=== PATIENT | female | born 1945 | race Caucasian/White ===

== ENCOUNTER 2018-10-05 12:05 | Inpatient (IN) | payer OTHER ==
[2018-10-05 12:58] VITALS: BMI 32.1
[2018-10-05] MEDS: NACHLORIDE 0.45% 1,000 ML IV SCH (13:55)
[2018-10-05] MEDS: MECLIZINE HCL 12.5 MG TAB PO SCH ×2 (13:55→21:30)
[2018-10-05] MEDS ORDERED: ONDANSETRON 4 MG (ODT) TAB PO PRN (14:00)
[2018-10-05] MEDS ORDERED: ONDANSETRON 4 MG/2 ML VIAL IV PRN (14:00)
[2018-10-05] MEDS ORDERED: DIPHENHYDRAMINE 25 MG TAB/CAP PO PRN (14:00)
[2018-10-05] MEDS ORDERED: POLYETHYL GLY 3350 17 GM/DOSE PO PRN (14:00)
[2018-10-05] MEDS ORDERED: LOPERAMIDE HCL 2 MG CAPSULE PO PRN (14:00)
[2018-10-05 15:18] LABS: Magnesium 2.1 mg/dL (1.8-2.4); Phosphorus 3.1 mg/dL (2.5-4.9); Thyroid Stimulating Hormone 0.892 uIU/mL (0.360-3.740)
[2018-10-05 15:34] LABS: Urine Appearance CLOUDY; Urine Bilirubin NEGATIVE (NEG); Urine Blood 2+ (NEG); Urine Color YELLOW; Urine Glucose NEGATIVE (NEG); Urine Protein 1+ (NEG); Urine Urobilinogen 0.2 mg/dL (0.2-1.0)
[2018-10-05 15:46] LABS: Absolute Lymphocytes (CBC) 1.1 K/uL (0.7-4.9); Basophils % 0.4 % (0-1.3); Eosinophils % 0.1 % (0-4.4); Hematocrit 34.7 % (36.0-45.0); Lymphocytes % 9.8 % (15.3-44.8); MPV 9.3 fL (7.6-11.3); Monocytes % 8.6 % (3.3-12.3); RBC Red Blood Cell Count 3.78 M/uL (3.86-4.86)
[2018-10-05 15:47] LABS: Protime INR 1.23
[2018-10-05 16:04] LABS: Urine Microscopic Reflex ORDER UMIC
[2018-10-05 16:05] LABS: Urine Bacteria 20-50 /HPF (<20); Urine Culture Reflex Order REFLEXED; Urine Mucus 2+ /HPF (NONE SEEN)
[2018-10-05] MEDS ORDERED: D50W 25 GM/50 ML SYRINGE IV PRN (16:20)
[2018-10-05] MEDS ORDERED: GLUCAGON 1 MG/VIAL IM PRN (16:20)
--- NOTE | 2018-10-05 16:27 | RAD REPORT ---
EXAM DESCRIPTION: [place] Single View10/05/2018 3:07 pm CLINICAL HISTORY: Abdominal pain COMPARISON: 2017 FINDINGS: The lungs appear clear of acute infiltrate. The heart is normal size IMPRESSION: No acute abnormalities displayed
[2018-10-05 16:28] LABS: Albumin 3.1 g/dL (3.4-5.0); Bilirubin Direct 0.5 mg/dL (0-0.2); Bilirubin Total 1.4 mg/dL (0.2-1.0); Protein, Total 6.6 g/dL (6.4-8.2)
[2018-10-05] MEDS: INSULIN -REGULAR HUMAN 50 UNIT/0.5 ML ML SQ SCH ×2 (16:30→21:00)
--- NOTE | 2018-10-05 16:31 | RAD REPORT ---
EXAM DESCRIPTION: CT - Abdomen Pelvis W Contrast - 10/05/2018 3:44 pm CLINICAL HISTORY: Abdominal pain COMPARISON: 2017 TECHNIQUE: Computed axial tomography of the abdomen pelvis was obtained. 100 cc Isovue-300 was admin istered intravenously. Oral contrast was not requested which limits evaluation of bowel. All CT scans are performed using dose optimization technique as appropriate and may include automated exposure control or mA/KV adjustment according to patient size. FINDINGS: Fatty infiltration liver. Gallbladder is been removed Spleen, pancreas and adrenals appear unremarkable. Moderate low-density areas are present within the right kidney reaching the periphery having the appe arance of pyelonephritis. Small renal cysts. Right perirenal stranding is present. There is no evidence of diverticulitis. IMPRESSION: Moderate right pyelonephritis
[2018-10-05] MEDS: ACETAMINOPHEN 325 MG TABLET PO PRN (17:36)
[2018-10-05] MEDS: CEFTRIAXONE/SWI 1gm 1 GM/10 ML SYR IVP SCH (17:38)
[2018-10-05 19:23] LABS: Absolute Lymphocytes (CBC) 0.7 K/uL (0.7-4.9); Absolute Monocytes 0.5 K/uL (0.1-1.3); Absolute Neutrophil 7.4 K/uL (1.8-8.0); Basophils % 0.2 % (0-1.3); Eosinophils % 0.1 % (0-4.4); Hematocrit 33.7 % (36.0-45.0); Lymphocytes % 7.9 % (15.3-44.8); MPV 9.4 fL (7.6-11.3); Monocytes % 5.6 % (3.3-12.3); RBC Red Blood Cell Count 4.02 M/uL (3.86-4.86)
[2018-10-05 19:25] LABS: Bilirubin Total 0.8 mg/dL (0.2-1.0); Potassium 3.3 mmol/L (3.5-5.1); Protein, Total 6.5 g/dL (6.4-8.2)
[2018-10-05] MEDS ORDERED: CEFTRIAXONE/SWI 1gm 1 GM/10 ML SYR IVP SCH (21:00)
[2018-10-05 21:28] LABS: Blood Morphology Comment NOT SEEN (NOT SEEN); Platelet Estimate ADEQ; Urine White Blood Cell Casts OK
--- NOTE | 2018-10-05 22:54 | EKG ---
Test Date: 2018-10-05 Test Time: 16:27:25 Freight Agent: MIGUELANGEL MEASUREMENT RESULTS: Intervals: Rate: 91 MI: 282 QRSD: 84 QT: 358 QTc: 440 [place]: P: 58 MI: 282 QRS: -6 T: 97 INTERPRETIVE STATEMENTS: Sinus rhythm with 1st degree AV block Nonspecific ST and T wave abnormality Abnormal ECG Compared to ECG 10/05/2018 14:24:42 No significant changes Electronically Signed On 10-05-18 22:53:58 CAR REFINISHER by Graham Moy
--- NOTE | 2018-10-05 22:55 | EKG ---
Test Date: 2018-10-05 Test Time: 14:24:42 [place] Machine Operator: JAGUAR MEASUREMENT RESULTS: Intervals: Rate: 71 UT: 284 QRSD: 86 QT: 404 QTc: 439 [place]: P: 32 UT: 284 QRS: -8 T: 102 INTERPRETIVE STATEMENTS: Sinus rhythm with 1st degree AV block Nonspecific ST and T wave abnormality Abnormal ECG Compared to ECG 08/30/2009 11:28:36 ST (T wave) deviation now present Electronically Signed On 10-05-18 22:55:00 SOFTBALL CORE MOLDER by Graham Moy
[2018-10-06] MEDS: NACHLORIDE 0.45% 1,000 ML IV SCH ×2 (04:13→17:55)
[2018-10-06 05:23] LABS: Absolute Lymphocytes (CBC) 1.4 K/uL (0.7-4.9); Absolute Monocytes 1.1 K/uL (0.1-1.3); Absolute Neutrophil 7.3 K/uL (1.8-8.0); Basophils % 0.4 % (0-1.3); Eosinophils % 0.2 % (0-4.4); Hematocrit 33.9 % (36.0-45.0); MPV 9.4 fL (7.6-11.3); Monocytes % 11.4 % (3.3-12.3); RBC Red Blood Cell Count 4.05 M/uL (3.86-4.86)
[2018-10-06 05:38] LABS: Magnesium 1.7 mg/dL (1.8-2.4); Potassium 3.6 mmol/L (3.5-5.1)
[2018-10-06] MEDS: PANTOPRAZOLE 40MG TABLET PO SCH (05:49)
[2018-10-06] MEDS: INSULIN -REGULAR HUMAN 50 UNIT/0.5 ML ML SQ SCH ×4 (07:30→21:00)
[2018-10-06] MEDS ORDERED: POTASSIUM CL SA 10 MEQ TAB PO ONE (07:54)
[2018-10-06] MEDS ORDERED: MAGNESIUM SULFATE 1 gm IVPB 1 GM/100 ML BAG IV ONE (07:55)
[2018-10-06] MEDS: GLIMEPIRIDE 2 MG TABLET PO SCH (09:00)
[2018-10-06] MEDS: LOSARTAN POTASSIUM 50 MG TABLET PO SCH (09:03)
[2018-10-06] MEDS: AMLODIPINE 5 MG TAB PO SCH ×2 (09:03→21:09)
[2018-10-06] MEDS: CEFTRIAXONE/SWI 1gm 1 GM/10 ML SYR IVP SCH ×2 (09:04→20:12)
[2018-10-06] MEDS: CARVEDILOL 25 MG TAB PO SCH ×2 (09:04→21:08)
[2018-10-06] MEDS: ENOXAPARIN 40 MG/0.4 ML SQ SCH (09:04)
[2018-10-06] MEDS: ACETAMINOPHEN 325 MG TABLET PO PRN ×2 (09:05→14:00)
[2018-10-06] MEDS: MECLIZINE HCL 12.5 MG TAB PO SCH ×3 (09:08→20:13)
[2018-10-06 15:36] LABS: UR MICROALBUMIN 21.1 mg/dL (< 1.9)
--- NOTE | 2018-10-06 17:36 | P.PN ---
Subjective Date of Service: 10/06/18 Chief Complaint: NOT MUCH DIZZY, FEVER STILL THERE. FEELS LOT BETTER. SHE IS FEELING LOT BETTER THAN YESTERDAY. Review of Systems 10-point ROS is otherwise unremarkable General: Weakness, Malaise Physical Examination - Vital Signs Temperature: 101.4 F Blood Pressure: 126/56 Pulse: 74 Respirations: 18 Pulse Ox (%): 93 - Physical Exam General: Mild distress HEENT: Atraumatic, PERRLA, EOMI Neck: Supple, JVD not distended Respiratory: Clear to auscultation bilaterally, Normal air movement Cardiovascular: Regular rate/rhythm, Normal S1 S2 Gastrointestinal: Normal bowel sounds, No tenderness Musculoskeletal: No tenderness Integumentary: No rashes Neurological: Normal speech, Normal tone, Normal affect Lymphatics: No axilla or inguinal lymphadenopathy - Studies Laboratory Data (last 24 hrs) 10/06/18 04:48: Sodium 139, Potassium 3.6, BUN 17, Creatinine 0.91, Glucose 76, Magnesium 1.7 L 10/06/18 04:48: WBC 9.9 D, Hgb 11.1 L, Hct 33.9 L, Plt Count 154 10/05/18 18:50: Sodium 137, Potassium 3.3 L, BUN 20 H, Creatinine 0.96, Glucose 180 H, Total Bilirubin 0.8, AST 16, ALT 19, Alkaline Phosphatase 75 10/05/18 18:50: WBC 8.6 D, Hgb 11.1 L, Hct 33.7 L, Plt Count 149 L Microbiology Data (last 24 hrs): 10/06/18 04:20 Sputum Gram Stain - Final Medications List Reviewed: Yes Assessment And Plan - Current Problems (Diagnosis) (1) Acute pyelonephritis Current Visit: Yes Status: Acute Plan: ROCEPHIN IV BID. CULTURE PENDING STILL HAS FEVER WILL NEED AT LEAST ONE MORE DAY
[2018-10-06] MEDS ORDERED: IBUPROFEN 200 MG TAB PO PRN (17:56)
[2018-10-06] MEDS: METFORMIN ER 500 MG TAB PO SCH (20:13)
[2018-10-06] MEDS: ATORVASTATIN 10 MG TAB PO SCH (20:13)
[2018-10-06] MEDS: DOXEPIN HCL 10 MG CAP PO SCH (21:08)
[2018-10-07 04:08] LABS: Absolute Lymphocytes (CBC) 1.2 K/uL (0.7-4.9); Absolute Neutrophil 5.4 K/uL (1.8-8.0); Basophils % 0.4 % (0-1.3); Eosinophils % 1.1 % (0-4.4); Hematocrit 31.3 % (36.0-45.0); Lymphocytes % 15.1 % (15.3-44.8); MPV 9.6 fL (7.6-11.3); Monocytes % 12.7 % (3.3-12.3); RBC Red Blood Cell Count 3.77 M/uL (3.86-4.86)
[2018-10-07 04:32] LABS: Magnesium 2.5 mg/dL (1.8-2.4); Potassium 3.9 mmol/L (3.5-5.1)
[2018-10-07] MEDS ORDERED: POTASSIUM CL SA 10 MEQ TAB PO ONE (05:10)
[2018-10-07] MEDS: NACHLORIDE 0.45% 1,000 ML IV SCH (06:07)
[2018-10-07] MEDS: PANTOPRAZOLE 40MG TABLET PO SCH (06:07)
[2018-10-07] MEDS: INSULIN -REGULAR HUMAN 50 UNIT/0.5 ML ML SQ SCH ×4 (07:30→21:00)
[2018-10-07] MEDS: CEFTRIAXONE/SWI 1gm 1 GM/10 ML SYR IVP SCH ×2 (08:48→21:40)
[2018-10-07] MEDS: ENOXAPARIN 40 MG/0.4 ML SQ SCH (08:49)
[2018-10-07] MEDS: AMLODIPINE 5 MG TAB PO SCH ×2 (08:49→21:43)
[2018-10-07] MEDS: CARVEDILOL 25 MG TAB PO SCH ×2 (08:50→21:40)
[2018-10-07] MEDS: GLIMEPIRIDE 2 MG TABLET PO SCH (08:52)
[2018-10-07] MEDS: LOSARTAN POTASSIUM 50 MG TABLET PO SCH (08:53)
[2018-10-07] MEDS: MECLIZINE HCL 12.5 MG TAB PO SCH ×3 (08:53→21:42)
[2018-10-07] MEDS: ACETAMINOPHEN 325 MG TABLET PO PRN (08:56)
--- NOTE | 2018-10-07 21:10 | P.PN ---
Subjective Date of Service: 10/07/18 Chief Complaint: LOT BETTER. Subjective: Improving SHE IS FEELING LOT BETTER THAN YESTERDAY. MARIAM IS ALOT BETTER. SHE STILL HAD FEVER THIS AM. DC IN AM. Physical Examination - Vital Signs Temperature: 99.4 F Blood Pressure: 101/48 Pulse: 70 Respirations: 18 Pulse Ox (%): 91 - Studies Laboratory Data (last 24 hrs) 10/07/18 03:24: Sodium 140, Potassium 3.9, BUN 20 H, Creatinine 0.90, Glucose 127 H, Magnesium 2.5 H D 10/07/18 03:24: WBC 7.7 D, Hgb 10.2 L, Hct 31.3 L, Plt Count 163 Microbiology Data (last 24 hrs): 10/06/18 04:20 Sputum Gram Stain - Final 10/05/18 15:24 Clean Catch Urine [place] Count - Final >100,000 CFU/ML. 10/05/18 15:24 Clean Catch Urine - Final Escherichia Coli Medications List Reviewed: Yes Assessment And Plan - Current Problems (Diagnosis) (1) Acute pyelonephritis Current Visit: Yes Status: Acute Plan: ROCEPHIN IV BID. CULTURE PENDING STILL HAS FEVER WILL NEED AT LEAST ONE MORE DAY E COLI FROM URINE DC WHEN AFEBRILE IN AM.
[2018-10-07] MEDS: ATORVASTATIN 10 MG TAB PO SCH (21:42)
[2018-10-07] MEDS: METFORMIN ER 500 MG TAB PO SCH (21:43)
[2018-10-07] MEDS: DOXEPIN HCL 10 MG CAP PO SCH (21:44)
[2018-10-08] MEDS: NACHLORIDE 0.45% 1,000 ML IV SCH ×3 (00:21→21:08)
[2018-10-08] MEDS: ACETAMINOPHEN 325 MG TABLET PO PRN ×2 (00:37→16:44)
[2018-10-08 06:24] LABS: Absolute Lymphocytes (CBC) 1.3 K/uL (0.7-4.9); Absolute Monocytes 0.7 K/uL (0.1-1.3); Absolute Neutrophil 2.6 K/uL (1.8-8.0); Basophils % 0.6 % (0-1.3); Eosinophils % 2.8 % (0-4.4); Hematocrit 30.6 % (36.0-45.0); Lymphocytes % 26.5 % (15.3-44.8); MPV 8.9 fL (7.6-11.3); Monocytes % 14.7 % (3.3-12.3); RBC Red Blood Cell Count 3.67 M/uL (3.86-4.86)
[2018-10-08] MEDS: PANTOPRAZOLE 40MG TABLET PO SCH (06:30)
[2018-10-08 06:39] LABS: Potassium 3.9 mmol/L (3.5-5.1)
[2018-10-08] MEDS: INSULIN -REGULAR HUMAN 50 UNIT/0.5 ML ML SQ SCH ×4 (07:30→21:00)
[2018-10-08] MEDS: ENOXAPARIN 40 MG/0.4 ML SQ SCH (08:34)
[2018-10-08] MEDS: CARVEDILOL 25 MG TAB PO SCH ×2 (08:36→21:10)
[2018-10-08] MEDS: GLIMEPIRIDE 2 MG TABLET PO SCH (08:36)
[2018-10-08] MEDS: MECLIZINE HCL 12.5 MG TAB PO SCH ×3 (08:37→21:10)
[2018-10-08] MEDS: AMLODIPINE 5 MG TAB PO SCH ×2 (08:37→21:09)
[2018-10-08] MEDS: LOSARTAN POTASSIUM 50 MG TABLET PO SCH (08:37)
[2018-10-08] MEDS: CEFTRIAXONE/SWI 1gm 1 GM/10 ML SYR IVP SCH ×2 (08:38→21:09)
[2018-10-08] MEDS ORDERED: POTASSIUM 25 MEQ EFFERV TAB PO ONE (09:00)
--- NOTE | 2018-10-08 13:58 | P.PN ---
Subjective Date of Service: 10/08/18 Chief Complaint: LOT BETTER. Subjective: Improving SHE IS FEELING LOT BETTER THAN YESTERDAY. MARIAM IS ALOT BETTER. SHE STILL HAD FEVER THIS AM. DC IN AM. SHE IS A LOT BETTER BUT STILL HAS TEMP ELEVATION IN AM. Review of Systems 10-point ROS is otherwise unremarkable Physical Examination - Vital Signs Temperature: 100.9 F Blood Pressure: 124/59 Pulse: 73 Respirations: 18 Pulse Ox (%): 93 - Physical Exam General: Alert, Mild distress HEENT: Atraumatic, PERRLA, EOMI Neck: Supple, JVD not distended Respiratory: Clear to auscultation bilaterally, Normal air movement Cardiovascular: Regular rate/rhythm, Normal S1 S2 Gastrointestinal: Tenderness (R SIDE FLANK PAIN, TENDER. ) Musculoskeletal: No tenderness Integumentary: No rashes Neurological: Normal speech, Normal tone, Normal affect Lymphatics: No axilla or inguinal lymphadenopathy - Studies Laboratory Data (last 24 hrs) 10/08/18 06:01: Sodium 143, Potassium 3.9, BUN 16, Creatinine 0.89, Glucose 91, Magnesium 2.0 D 10/08/18 06:01: WBC 4.8 D, Hgb 10.2 L, Hct 30.6 L, Plt Count 187 Microbiology Data (last 24 hrs): 10/06/18 04:20 Sputum Gram Stain - Final 10/06/18 04:20 Sputum Culture & Sensitivity - Final Medications List Reviewed: Yes Assessment And Plan - Current Problems (Diagnosis) (1) Acute pyelonephritis Current Visit: Yes Status: Acute Plan: ROCEPHIN IV BID. CULTURE PENDING STILL HAS FEVER WILL NEED AT LEAST ONE MORE DAY E COLI FROM URINE DC WHEN AFEBRILE IN AM. STILL FEBRILE. WILL NEED TO BE AFEBRILE FOR A DAY RESUME IV ABX.
[2018-10-08 15:13] LABS: Vitamin D 1,25-Dihydroxy Total 27 pg/mL (18-72); Vitamin D,1,25-OH2, D2 <8 pg/mL
[2018-10-08] MEDS: ATORVASTATIN 10 MG TAB PO SCH (21:10)
[2018-10-08] MEDS: METFORMIN ER 500 MG TAB PO SCH (21:10)
[2018-10-08] MEDS: DOXEPIN HCL 10 MG CAP PO SCH (21:11)
[2018-10-08 21:51] LABS: HBsAG Nonreactive (Nonreactive); Hepatitis A IgM Antibody Nonreactive
[2018-10-09] MEDS: PANTOPRAZOLE 40MG TABLET PO SCH (05:39)
[2018-10-09] MEDS: NACHLORIDE 0.45% 1,000 ML IV SCH ×3 (05:40→20:49)
[2018-10-09 06:27] LABS: Absolute Lymphocytes (CBC) 1.6 K/uL (0.7-4.9); Absolute Monocytes 0.6 K/uL (0.1-1.3); Absolute Neutrophil 3.4 K/uL (1.8-8.0); Basophils % 0.8 % (0-1.3); Eosinophils % 2.5 % (0-4.4); Hematocrit 34.5 % (36.0-45.0); Lymphocytes % 27.4 % (15.3-44.8); MPV 8.8 fL (7.6-11.3); Monocytes % 11.1 % (3.3-12.3); RBC Red Blood Cell Count 4.16 M/uL (3.86-4.86)
[2018-10-09 06:33] LABS: Potassium 4.3 mmol/L (3.5-5.1)
[2018-10-09] MEDS: INSULIN -REGULAR HUMAN 50 UNIT/0.5 ML ML SQ SCH ×4 (07:30→20:48)
--- NOTE | 2018-10-09 08:08 | P.PN ---
Subjective Date of Service: 10/09/18 Chief Complaint: LOT BETTER. Subjective: Improving SHE IS FEELING LOT BETTER THAN YESTERDAY. MARIAM IS ALOT BETTER. SHE STILL HAD FEVER THIS AM. DC IN AM. SHE IS A LOT BETTER BUT STILL HAS TEMP ELEVATION IN AM. FEVER IS STILL THERE BUT LOW GRADE. Review of Systems 10-point ROS is otherwise unremarkable Physical Examination - Vital Signs Temperature: 99.6 F Blood Pressure: 138/65 Pulse: 75 Respirations: 18 Pulse Ox (%): 90 - Physical Exam General: Alert, Mild distress HEENT: Atraumatic, PERRLA, EOMI Neck: Supple, JVD not distended Respiratory: Clear to auscultation bilaterally, Normal air movement Cardiovascular: Regular rate/rhythm, Normal S1 S2 Gastrointestinal: Tenderness (MILD R ABDOMEN TENDER, LOT BETTER THAN BEFORE) Musculoskeletal: No tenderness Integumentary: No rashes Neurological: Normal speech, Normal tone, Normal affect Lymphatics: No axilla or inguinal lymphadenopathy - Studies Laboratory Data (last 24 hrs) 10/09/18 05:41: Sodium 143, Potassium 4.3, BUN 11, Creatinine 0.66, Glucose 81, Magnesium 2.0 10/09/18 05:41: WBC 5.8 D, Hgb 11.3 L, Hct 34.5 L, Plt Count 241 D Microbiology Data (last 24 hrs): 10/06/18 04:20 Sputum Gram Stain - Final 10/06/18 04:20 Sputum Culture & Sensitivity - Final Medications List Reviewed: Yes Assessment And Plan - Current Problems (Diagnosis) (1) Acute pyelonephritis Current Visit: Yes Status: Acute Plan: ROCEPHIN IV BID. CULTURE PENDING STILL HAS FEVER WILL NEED AT LEAST ONE MORE DAY E COLI FROM URINE DC WHEN AFEBRILE IN AM. STILL FEBRILE. WILL NEED TO BE AFEBRILE FOR A DAY RESUME IV ABX. FEVER HAS IMPROVED BUT STILL SOME HIGH IN AM DC IN AM.
[2018-10-09] MEDS: ENOXAPARIN 40 MG/0.4 ML SQ SCH (08:33)
[2018-10-09] MEDS: GLIMEPIRIDE 2 MG TABLET PO SCH (08:34)
[2018-10-09] MEDS: AMLODIPINE 5 MG TAB PO SCH ×2 (08:34→20:51)
[2018-10-09] MEDS: CARVEDILOL 25 MG TAB PO SCH ×2 (08:35→20:50)
[2018-10-09] MEDS: LOSARTAN POTASSIUM 50 MG TABLET PO SCH (08:36)
[2018-10-09] MEDS: MECLIZINE HCL 12.5 MG TAB PO SCH ×3 (08:36→20:50)
[2018-10-09] MEDS: CEFTRIAXONE/SWI 1gm 1 GM/10 ML SYR IVP SCH ×2 (08:36→20:49)
[2018-10-09] MEDS: METFORMIN ER 500 MG TAB PO SCH (20:50)
[2018-10-09] MEDS: ATORVASTATIN 10 MG TAB PO SCH (20:50)
[2018-10-09] MEDS: DOXEPIN HCL 10 MG CAP PO SCH (20:51)
[2018-10-10] MEDS: ACETAMINOPHEN 325 MG TABLET PO PRN (00:10)
[2018-10-10] MEDS: PANTOPRAZOLE 40MG TABLET PO SCH (05:25)
[2018-10-10] MEDS: NACHLORIDE 0.45% 1,000 ML IV SCH (05:25)
[2018-10-10 06:17] LABS: Absolute Monocytes 0.7 K/uL (0.1-1.3); Absolute Neutrophil 3.2 K/uL (1.8-8.0); Basophils % 1.2 % (0-1.3); Eosinophils % 2.5 % (0-4.4); Hematocrit 33.6 % (36.0-45.0); Lymphocytes % 32.2 % (15.3-44.8); MPV 9.1 fL (7.6-11.3); Monocytes % 10.9 % (3.3-12.3); RBC Red Blood Cell Count 4.07 M/uL (3.86-4.86)
[2018-10-10 06:30] LABS: Magnesium 2.1 mg/dL (1.8-2.4); Potassium 3.8 mmol/L (3.5-5.1)
[2018-10-10] MEDS ORDERED: POTASSIUM CL SA 10 MEQ TAB PO ONE ×2 (07:27→09:00)
[2018-10-10] MEDS: INSULIN -REGULAR HUMAN 50 UNIT/0.5 ML ML SQ SCH ×2 (07:30→11:30)
[2018-10-10] MEDS: CEFTRIAXONE/SWI 1gm 1 GM/10 ML SYR IVP SCH (08:43)
[2018-10-10] MEDS: ENOXAPARIN 40 MG/0.4 ML SQ SCH (08:43)
[2018-10-10] MEDS: GLIMEPIRIDE 2 MG TABLET PO SCH (08:44)
[2018-10-10] MEDS: CARVEDILOL 25 MG TAB PO SCH (08:45)
[2018-10-10] MEDS: LOSARTAN POTASSIUM 50 MG TABLET PO SCH (08:45)
[2018-10-10] MEDS: MECLIZINE HCL 12.5 MG TAB PO SCH (08:45)
[2018-10-10] MEDS: AMLODIPINE 5 MG TAB PO SCH (08:46)
[2018-10-10 09:18] VITALS: O2SAT 94
--- NOTE | 2018-10-10 10:19 | P.DS ---
Admission Date: 10/05/18 Discharge Date: 10/10/18 Disposition: ROUTINE DISCHARGE Discharge Condition: FAIR Reason for Admission: LOT BETTER. - Problems (1) Acute pyelonephritis Current Visit: Yes Status: Acute Hospital Course: Khloe comes with high fever and I suspect r sided pyelonephritis in the office. This was confirmed by CT scan and UA. She took a few days to get afebrile on iv Rocephin. She is now stable to go home on oral ceftin. She also needed Meclizine for severe vertigo that now has resolved. Vital Signs/Physical Exam: Temp Pulse Resp BP Pulse Ox 97.1 F 75 18 141/63 H 93 10/10/18 08:00 10/10/18 08:46 10/10/18 08:00 10/10/18 08:46 10/10/18 08:00 Laboratory Data at Discharge: WBC 6.1 K/uL (4.3-10.9) 10/10/18 05:21 Hgb 11.3 g/dL (12.0-15.0) L 10/10/18 05:21 Hct 33.6 % (36.0-45.0) L 10/10/18 05:21 Plt Count 240 K/uL (152-406) 10/10/18 05:21 PT 14.6 SECONDS (9.5-12.5) H 10/05/18 14:19 INR 1.23 10/05/18 14:19 APTT 28.5 SECONDS (24.3-36.9) 10/05/18 14:19 Sodium 143 mmol/L (136-145) 10/10/18 05:21 Potassium 3.8 mmol/L (3.5-5.1) 10/10/18 05:21 BUN 11 mg/dL (7-18) 10/10/18 05:21 Creatinine 0.75 mg/dL (0.55-1.3) 10/10/18 05:21 Glucose 91 mg/dL (74-106) 10/10/18 05:21 Phosphorus 3.1 mg/dL (2.5-4.9) 10/05/18 14:19 Magnesium 2.1 mg/dL (1.8-2.4) 10/10/18 05:21 Total Bilirubin 1.4 mg/dL (0.2-1.0) H 10/05/18 Unknown AST 10 U/L (15-37) L 10/05/18 Unknown ALT 19 U/L (12-78) 10/05/18 Unknown Alkaline Phosphatase 76 U/L (45-117) 10/05/18 Unknown Home Medications: Carvedilol [Coreg*] 12.5 mg PO BID 05/29/15 Losartan Potassium [Cozaar] 100 mg PO DAILY 05/29/15 Pravastatin [Pravachol] 20 mg PO BEDTIME 05/29/15 Amlodipine [Norvasc*] 5 mg PO BID 10/05/18 Doxepin HCl [Sinequan*] 10 mg PO BEDTIME 10/05/18 Glimepiride 4 mg PO DAILY 10/05/18 Metformin ER [Glucophage ER*] 500 mg PO BEDTIME 10/05/18 Omeprazole 20 mg PO DAILY 10/05/18 Torsemide 10 mg PO DAILY 10/05/18 Cefuroxime [Ceftin] 250 mg PO BID #20 tab 10/10/18 New Medications: Cefuroxime [Ceftin] 250 mg PO BID #20 tab
[2018-10-10 12:07] VITALS: BP 130/62; TEMP 97.8
== END 2018-10-10 13:37 | disposition home or self-care (01) | DRG 690 ==
LOC: 4TH 12:24 → OBSVTOIN 14:06 → INTOOBSV 14:06 → OBSVTOIN 10-06 14:05
PROVIDERS: ADMIT Internal Medicine; ATTEND Internal Medicine
DX: N10 Acute pyelonephritis (principal); I10 Essential (primary) hypertension; Z86.010 Personal history of colon polyps; R68.2 Dry mouth, unspecified; E11.9 Type 2 diabetes mellitus without complications; E78.5 Hyperlipidemia, unspecified; I25.10 Atherosclerotic heart disease of native coronary artery without angina pectoris; R50.9 Fever, unspecified; B96.20 Unspecified Escherichia coli [E. coli] as the cause of diseases classified elsewhere
CPT/HCPCS: 36415; 71045; 74177; 80048; 80053; 80074; 80076; 81003; 81015; 82043; 82570; 82607; 82652; 82962; 83036; 83605; 83735; 84100; 84443; 85025; 85610; 85730; 87040; 87070; 87077; 87086; 87088; 87186; 87205; 93005; J0696; J1650; J3475; Q9967

== ENCOUNTER 2019-03-03 09:46 | Day surgery (SDC) | payer OTHER ==
[2019-03-03] MEDS ORDERED: Zoledronic Acid/Mannitol/Water 5 MG/100 ML INFUS.BOT IV NR (10:00)
[2019-03-03 16:04] VITALS: BP 119/56; TEMP 98.3; O2SAT 98
[2019-03-03 16:09] VITALS: BMI 31.8
== END 2019-03-03 11:00 | disposition home or self-care (01) ==
LOC: DS 09:46
PROVIDERS: ATTEND Clinical Nurse Specialist Women's Health
DX: M89.9 Disorder of bone, unspecified (principal)
CPT/HCPCS: 96365; J3489

== ENCOUNTER 2020-06-02 20:05 | Emergency (ER) | payer OTHER ==
[2020-06-02 20:41] LABS: Absolute Lymphocytes (CBC) 1.5 K/uL (0.7-4.9); Basophils % 0.5 % (0-1.3); Hematocrit 43.2 % (36.0-45.0); Lymphocytes % 17.4 % (15.3-44.8); MPV 9.3 fL (7.6-11.3); RBC Red Blood Cell Count 5.02 M/uL (3.86-4.86)
[2020-06-02 20:49] LABS: Urine Culture Reflex Order REFLEXED
[2020-06-02 20:50] LABS: Urine Bacteria <20 /HPF (<20); Urine RBC <5 /HPF (NONE SEEN); Urine Urothelial Cells <5 /HPF (NONE SEEN)
[2020-06-02] MEDS ORDERED: NA CHLORIDE 0.9% 1,000 ML ONE (20:52)
[2020-06-02] MEDS ORDERED: ONDANSETRON 4 MG/2 ML VIAL ONE (20:52)
[2020-06-02 21:02] LABS: Albumin 3.7 g/dL (3.4-5.0); Bilirubin Direct 0.2 mg/dL (0-0.2); Bilirubin Total 0.7 mg/dL (0.2-1.0); Protein, Total 7.7 g/dL (6.4-8.2)
--- NOTE | 2020-06-02 21:49 | ER ---
Nurse's Notes [facility] Name: Khloe Diaz Age: 74 yrs Sex: Female : 1945 Arrival Date: 06/02/2020 Time: 20:08 Bed 7 Private MD: Marco Peraza V Diagnosis: Urinary tract infection, site not specified Presentation: 06/02 20:26 Chief complaint: Patient states: Diagnosed with UTI 3 days ago, given Bactrim lp1 prescription, told to come to ER if no improvement; States 2 years ago, similar symptoms with kidney infection; denies any pain. Coronavirus screen: Client denies travel out of the [place] in the last 14 days. At this time, the client does not indicate any symptoms associated with coronavirus-19. Ebola Screen: No symptoms or risks identified at this time. Initial Sepsis Screen: Does the patient meet any 2 criteria? No. Patient's initial sepsis screen is negative. Does the patient have a suspected source of infection? No. Patient's initial sepsis screen is negative. Risk Assessment: Do you want to hurt yourself or someone else? Patient reports no desire to harm self or others. Onset of symptoms was June 02, 2020. 20:26 Method Of Arrival: Wheelchair lp1 20:26 Acuity: CATARINO 3 lp1 Historical: - Allergies: 20:43 Levaquin; ca1 20:43 Levaquin; lp1 - Home Meds: 20:43 Unable to obtain [Active]; lp1 - PMHx: 20:43 Hypertension; Hypothyroidism; ca1 20:43 Hypertension; Hypothyroidism; Diabetes - NIDDM; lp1 - PSHx: 20:43 maría mastectomy; partial thyroidectomy; cataracts; Appendectomy; Cholecystectomy; ca1 20:43 Cholecystectomy; maría mastectomy; lp1 - Immunization history:: Adult Immunizations up to date, Adult Immunizations up to date. - Social history:: Smoking status: Patient denies any tobacco usage or history of. Smoking status: Patient denies any tobacco usage or history of. Screenin:43 Abuse screen: Denies threats or abuse. Denies injuries from another. Abuse screen: ca1 Denies threats or abuse. Nutritional screening: No deficits noted. Tuberculosis screening: No symptoms or risk factors identified. Fall Risk IV access (20 points). Assessment: 20:20 General: Appears in no apparent distress. comfortable, Behavior is calm, cooperative, ca1 appropriate for age. Pain: Complains of pain in left leg Pain currently is 6 out of 10 on a pain scale. Neuro: Level of Consciousness is awake, alert, obeys commands, Oriented to person, place, time, situation. Cardiovascular: Heart tones S1 S2 present Capillary refill < 3 seconds Patient's skin is warm and dry. Respiratory: Airway is patent Respiratory effort is even, unlabored, Respiratory pattern is regular, symmetrical, Breath sounds are clear bilaterally. GI: Abdomen is round non-distended, Bowel sounds present X 4 quads. Abd is soft and non tender X 4 quads. Reports nausea. : Reports blood with urine Denies burning with urination, urinary frequency, urgency. EENT: No signs and/or symptoms were reported regarding the EENT system. Derm: Skin is intact, is healthy with good turgor, Skin is pink, warm \T\ dry. Musculoskeletal: Circulation, motion, and sensation intact. Capillary refill < 3 seconds. 21:04 Reassessment: Patient and/or family updated on plan of care and expected duration. Pain ea level reassessed. Patient is alert, oriented x 3, equal unlabored respirations, skin warm/dry/pink. Vital Signs: 20:26 BP 111 / 99; Pulse 88; Resp 18; Temp 97.3(TE); Pulse Ox 96% on R/A; Weight 78.02 kg lp1 (R); Height 4 ft. 11 in. (149.86 cm); Pain 7/10; 20:59 BP 134 / 58; Pulse 79; Resp 15; Temp 97.3; Pulse Ox 95% on R/A; ll2 21:08 BP 136 / 55; Pulse 79; Resp 18; Pulse Ox 96% on R/A; ea 20:26 Body Mass Index 34.74 (78.02 kg, 149.86 cm) lp1 ED Course: 20:08 Patient arrived in ED. am2 20:09 Marco Peraza MD is Private Physician. am2 20:13 Lupe Madera, CAT is Primary Nurse. ca1 20:14 Ellis Jansen MD is Attending Physician. tw4 20:29 Triage completed. lp1 20:30 Arm band placed on. lp1 20:34 Inserted saline lock: 22 gauge in right antecubital area, using aseptic technique. ds4 Blood collected. 20:37 CBC with Diff Sent. ds4 20:43 Patient has correct armband on for positive identification. Placed in gown. Bed in low ca1 position. Call light in reach. Side rails up X2. Pulse ox on. NIBP on. Warm blanket given. 21:45 Urine Culture Sent. ll2 21:48 Marco Peraza MD is Referral Physician. tw4 22:01 No provider procedures requiring assistance completed. IV discontinued, intact, ll2 bleeding controlled, No redness/swelling at site. Pressure dressing applied. Administered Medications: 20:43 Drug: Zofran (Ondansetron) 4 mg Route: IVP; Site: right antecubital; mg2 21:23 Follow up: Response: No adverse reaction; Nausea is decreased mg2 20:43 Drug: NS 0.9% 1000 ml Route: IV; Rate: 1000 ml; Site: right antecubital; mg2 21:47 Drug: Rocephin - (cefTRIAXone) 1 grams {Note: administer IVP .} Route: IVPB; Infused ll2 Over: 30 mins; Site: right antecubital; 21:52 Follow up: Response: No adverse reaction ll2 Outcome: 21:49 Discharge ordered by . tw4 22:00 Discharged to home via wheelchair. ll2 22:00 Condition: stable 22:00 Discharge instructions given to patient, Instructed on discharge instructions, follow up and referral plans. medication usage, Demonstrated understanding of instructions, follow-up care, medications, Prescriptions given X 3. 22:01 Patient left the ED. ll2 Signatures: Gisella Iraheta RN RN lp1 Maycol Jansen ds4 Carito Farfan am2 Evelyne Mcgraw RN Ellis Ruggiero ea, MD MD tw4 Wan Ashby RN RN mg2 Lupe Madera RN RN ca1 Tanesha Hyatt RN RN ll2
--- NOTE | 2020-06-02 21:50 | EDPHYS ---
Physician Documentation [facility] Name: Khloe iDaz Age: 74 yrs Sex: Female : 1945 Arrival Date: 06/02/2020 Time: 20:08 Bed 7 Private MD: Marco Peraza V ED Physician Ellis Jansen HPI: 06/02 22:44 This 74 yrs old Female presents to ER via Wheelchair with complaints of blood tw4 in urine, Trouble Walking, Nausea. 22:44 The patient presents with urinary symptoms, hematuria. Onset: The symptoms/episode tw4 began/occurred today. Modifying factors: The symptoms are alleviated by nothing, the symptoms are aggravated by nothing. Associated signs and symptoms: The patient has no apparent associated signs or symptoms. Severity of symptoms: At their worst the symptoms were mild, in the emergency department the symptoms are unchanged. The patient has not experienced similar symptoms in the past. Historical: - Allergies: 20:43 Levaquin; ca1 20:43 Levaquin; lp1 - Home Meds: 20:43 Unable to obtain [Active]; lp1 - PMHx: 20:43 Hypertension; Hypothyroidism; ca1 20:43 Hypertension; Hypothyroidism; Diabetes - NIDDM; lp1 - PSHx: 20:43 maría mastectomy; partial thyroidectomy; cataracts; Appendectomy; Cholecystectomy; ca1 20:43 Cholecystectomy; maría mastectomy; lp1 - Immunization history:: Adult Immunizations up to date, Adult Immunizations up to date. - Social history:: Smoking status: Patient denies any tobacco usage or history of. Smoking status: Patient denies any tobacco usage or history of. ROS: 22:44 Positive for hematuria. tw4 22:45 Constitutional: Negative for fever, chills, and weight loss, Eyes: Negative for injury, tw4 pain, redness, and discharge, Cardiovascular: Negative for chest pain, palpitations, and edema, Respiratory: Negative for shortness of breath, cough, wheezing, and pleuritic chest pain, Abdomen/GI: Negative for abdominal pain, nausea, vomiting, diarrhea, and constipation, Back: Negative for injury and pain, MS/Extremity: Negative for injury and deformity, Skin: Negative for injury, rash, and discoloration. 22:45 Constitutional: Positive for body aches, chills, fatigue. Exam: 22:44 Constitutional: This is a well developed, well nourished patient who is awake, alert, tw4 and in no acute distress. Head/Face: Normocephalic, atraumatic. Chest/axilla: Normal chest wall appearance and motion. Nontender with no deformity. No lesions are appreciated. Cardiovascular: Regular rate and rhythm with a normal S1 and S2. No gallops, murmurs, or rubs. Normal PMI, no JVD. No pulse deficits. Respiratory: Lungs have equal breath sounds bilaterally, clear to auscultation and percussion. No rales, rhonchi or wheezes noted. No increased work of breathing, no retractions or nasal flaring. Abdomen/GI: Soft, non-tender, with normal bowel sounds. No distension or tympany. No guarding or rebound. No evidence of tenderness throughout. MS/ Extremity: Pulses equal, no cyanosis. Neurovascular intact. Full, normal range of motion. Neuro: Awake and alert, GCS 15, oriented to person, place, time, and situation. Cranial nerves II-XII grossly intact. Motor strength 5/5 in all extremities. Sensory grossly intact. Cerebellar exam normal. Normal gait. Vital Signs: 20:26 BP 111 / 99; Pulse 88; Resp 18; Temp 97.3(TE); Pulse Ox 96% on R/A; Weight 78.02 kg lp1 (R); Height 4 ft. 11 in. (149.86 cm); Pain 7/10; 20:59 BP 134 / 58; Pulse 79; Resp 15; Temp 97.3; Pulse Ox 95% on R/A; ll2 21:08 BP 136 / 55; Pulse 79; Resp 18; Pulse Ox 96% on R/A; ea 20:26 Body Mass Index 34.74 (78.02 kg, 149.86 cm) lp1 MDM: 20:14 Patient medically screened. tw4 22:45 Differential diagnosis: urinary tract infection. Data reviewed: vital signs, nurses tw4 notes. Data interpreted: Pulse oximetry: Interpretation: normal. Counseling: I had a detailed discussion with the patient and/or guardian regarding: the historical points, exam findings, and any diagnostic results supporting the discharge/admit diagnosis. Special discussion: I discussed with the patient/guardian in detail that at this point there is no indication for admission to the hospital. It is understood, however, that if the symptoms persist or worsen the patient needs to return immediately for re-evaluation. 06/02 20:22 Order name: Basic Metabolic Panel; Complete Time: 21:43 tw4 06/02 21:43 Interpretation: Normal except: NA 134; GLUC 195; BUN 39; CRE 1.73; GFR 29. [facility] 06/02 20:22 Order name: CBC with Diff; Complete Time: 21:43 [facility] 06/02 21:43 Interpretation: Normal except: RBC 5.02; MCV 86.0. tw 06/02 20:22 Order name: Hepatic Function; Complete Time: 21:43 [facility] 06/02 21:43 Interpretation: Normal except: AST 41; GLOB 4.0; A/G 0.9. [facility] 06/02 20:22 Order name: Lipase; Complete Time: 21:43 [facility] 06/02 21:43 Interpretation: LIP 60. [facility] 06/02 20:32 Order name: Urine Microscopic Only; Complete Time: 21:43 [facility] 06/02 21:43 Interpretation: Normal except: UWBC 20-50; URCRY MODERATE. [facility] 06/02 20:53 Order name: Urine Culture [facility] 06/02 20:22 Order name: IV Saline Lock; Complete Time: 20:37 [facility] 06/02 20:22 Order name: Labs collected and sent; Complete Time: 20:37 [facility] 06/02 20:22 Order name: Urine Dipstick-Ancillary (obtain specimen); Complete Time: 20:33 tw4 Administered Medications: 20:43 Drug: Zofran (Ondansetron) 4 mg Route: IVP; Site: right antecubital; mg2 21:23 Follow up: Response: No adverse reaction; Nausea is decreased mg2 20:43 Drug: NS 0.9% 1000 ml Route: IV; Rate: 1000 ml; Site: right antecubital; mg2 21:47 Drug: Rocephin - (cefTRIAXone) 1 grams {Note: administer IVP .} Route: IVPB; Infused ll2 Over: 30 mins; Site: right antecubital; 21:52 Follow up: Response: No adverse reaction ll2 Disposition: 06/02/20 21:49 Discharged to Home. Impression: Urinary tract infection, site not specified. - Condition is Stable. - Discharge Instructions: Urinary Tract Infection, Adult. - Prescriptions for Pyridium 200 mg Oral Tablet - take 1 tablet by ORAL route every 8 hours for 3 days; 9 tablet. Macrobid 100 mg Oral Capsule - take 1 capsule by ORAL route every 12 hours for 10 days; 20 capsule. Zofran 4 mg Oral Tablet - take 1 tablet by ORAL route every 12 hours As needed; 6 tablet. - Medication Reconciliation Form, Thank You Letter, Antibiotic Education, Prescription Opioid Use form. - Follow up: Marco Peraza MD; When: Upon discharge from the Emergency Department; Reason: Recheck today's complaints, Continuance of care, Re-evaluation by your physician. - Problem is new. - Symptoms have improved. Signatures: Dispatcher [employer] EDMS Gisella Iraheta RN RN lp1 Ellis Jansen MD MD tw4 Wan Ashby RN RN mg2 Lupe Madera RN RN ca1 Tanesha Hyatt RN RN ll2 Corrections: (The following items were deleted from the chart) 22:01 21:49 06/02/2020 21:49 Discharged to Home. Impression: Urinary tract infection, site ll2 not specified. Condition is Stable. Forms are Medication Reconciliation Form, Thank You Letter, Antibiotic Education, Prescription Opioid Use. Follow up: Marco Peraza; When: Upon discharge from the Emergency Department; Reason: Recheck today's complaints, Continuance of care, Re-evaluation by your physician. Problem is new. Symptoms have improved. tw4 22:46 22:44 Constitutional: Negative for fever, chills, and weight loss, Eyes: Negative for tw4 injury, pain, redness, and discharge, Cardiovascular: Negative for chest pain, palpitations, and edema, Respiratory: Negative for shortness of breath, cough, wheezing, and pleuritic chest pain, Abdomen/GI: Negative for abdominal pain, nausea, vomiting, diarrhea, and constipation, Back: Negative for injury and pain, MS/Extremity: Negative for injury and deformity, Skin: Negative for injury, rash, and discoloration, tw4
[2020-06-02] MEDS ORDERED: CEFTRIAXONE/SWI 1gm 1 GM/10 ML SYR ONE (21:58)
[2020-06-03 20:01] VITALS: TEMP 97.3
[2020-06-03 20:04] VITALS: BP 136/55; O2SAT 96
== END 2020-06-02 22:01 | disposition home or self-care (01) ==
LOC: ER 20:05
DX: N39.0 Urinary tract infection, site not specified (principal); I10 Essential (primary) hypertension; Z90.13 Acquired absence of bilateral breasts and nipples; Z88.1 Allergy status to other antibiotic agents
CPT/HCPCS: 87088; 85025; 87086; 80048; 36415; 80076; 81015; 83690; 96375; 96374; 99284; J0696; J7030; J2405

== ENCOUNTER 2020-06-05 17:55 | Observation (INO) | payer OTHER ==
[2020-06-05] MEDS ORDERED: HYDROMORPHONE HCL 1 MG/ML INJ IV PRN (18:11)
[2020-06-05 18:24] VITALS: BMI 33.3
[2020-06-05] MEDS: ENOXAPARIN 40 MG/0.4 ML SQ SCH (18:51)
[2020-06-05 18:59] LABS: Protime INR 1.15
[2020-06-05] MEDS ORDERED: ACETAMINOPHEN 325 MG TABLET PO PRN (19:00)
[2020-06-05] MEDS ORDERED: PNEUMOCOCCAL VACCINE 0.5 ML IMVAC ONE (19:00)
[2020-06-05] MEDS ORDERED: POLYETHYL GLY 3350 17 GM/DOSE PO PRN (19:00)
[2020-06-05] MEDS ORDERED: ONDANSETRON 4 MG (ODT) TAB PO PRN (19:00)
[2020-06-05] MEDS ORDERED: ONDANSETRON 4 MG/2 ML VIAL IV PRN (19:00)
[2020-06-05] MEDS ORDERED: DIPHENHYDRAMINE 25 MG TAB/CAP PO PRN (19:00)
[2020-06-05 19:05] LABS: Absolute Lymphocytes (CBC) 1.8 K/uL (0.7-4.9); Basophils % 0.3 % (0-1.3); Hematocrit 42.5 % (36.0-45.0); Lymphocytes % 12.7 % (15.3-44.8); MPV 9.4 fL (7.6-11.3); RBC Red Blood Cell Count 4.89 M/uL (3.86-4.86)
[2020-06-05] MEDS ORDERED: D50W 25 GM/50 ML SYRINGE/VIAL IV PRN (19:15)
[2020-06-05] MEDS: NACHLORIDE 0.45% 1,000 ML IV SCH (19:15)
[2020-06-05] MEDS: METRONIDAZOLE 500mg IVPB 500 MG/100 ML BAG IV SCH (19:15)
[2020-06-05] MEDS ORDERED: GLUCAGON 1 MG/VIAL IM PRN (19:15)
[2020-06-05] MEDS: CEFTRIAXONE/SWI 1gm 1 GM/10 ML SYR IVP SCH (19:16)
[2020-06-05 19:31] LABS: Albumin 3.3 g/dL (3.4-5.0); Bilirubin Direct 0.2 mg/dL (0-0.2); Bilirubin Total 0.6 mg/dL (0.2-1.0); Magnesium 2.3 mg/dL (1.8-2.4); Phosphorus 3.3 mg/dL (2.5-4.9); Potassium 4.7 mmol/L (3.5-5.1); Protein, Total 7.7 g/dL (6.4-8.2); Thyroid Stimulating Hormone 2.24 uIU/mL (0.360-3.740)
[2020-06-05] MEDS ORDERED: INFLUENZA VACCINE (for 3y+) 0.5 ML DOSE IMVAC ONE (19:32)
--- NOTE | 2020-06-05 20:23 | RAD REPORT ---
EXAM DESCRIPTION: RAD - Chest Pa And Lat (2 Views) - 06/05/2020 8:03 pm CLINICAL HISTORY: abdomen pain COMPARISON: Portable September 1999 TECHNIQUE: Frontal and lateral views of the chest were obtained. FINDINGS: The lungs are clear of focal finding. Interstitial pattern matches comparison. Heart siz e is normal and central vasculature is within normal limits. No pleural effusion or pneumothorax see n. No acute bony finding noted. No aortic abnormality. No free air under the diaphragm. IMPRESSION: No acute cardiopulmonary process. No suspicious change from comparison.
[2020-06-05] MEDS: INSULIN -REGULAR HUMAN 50 UNIT/0.5 ML ML SQ SCH (21:00)
[2020-06-05 23:05] LABS: Urine Appearance CLEAR; Urine Blood NEGATIVE (NEG); Urine Color RED; Urine Glucose NEGATIVE (NEG); Urine Protein 2+ (NEG); Urine Specific Gravity >=1.030 (1.005-1.030)
[2020-06-05 23:08] LABS: Urine Bilirubin 2+ (NEG)
[2020-06-05 23:09] LABS: Urine Microscopic Reflex ORDER UMIC
[2020-06-05 23:40] LABS: Urine Culture Reflex Order REFLEXED
[2020-06-05 23:41] LABS: Urine Bacteria <20 /HPF (<20); Urine RBC NONE SEEN /HPF (NONE SEEN); Urine Urothelial Cells <5 /HPF (NONE SEEN)
[2020-06-06] MEDS: METRONIDAZOLE 500mg IVPB 500 MG/100 ML BAG IV SCH ×3 (00:59→18:01)
[2020-06-06 05:43] LABS: Absolute Lymphocytes (CBC) 2.3 K/uL (0.7-4.9); Basophils % 0.6 % (0-1.3); Hematocrit 35.5 % (36.0-45.0); Lymphocytes % 21.9 % (15.3-44.8)
[2020-06-06 05:46] LABS: Magnesium 2.2 mg/dL (1.8-2.4); Potassium 4.4 mmol/L (3.5-5.1)
[2020-06-06] MEDS: INSULIN -REGULAR HUMAN 50 UNIT/0.5 ML ML SQ SCH ×4 (07:30→20:34)
[2020-06-06] MEDS ORDERED: MYRBETRIQ 25 MG PO SCH (09:00)
[2020-06-06] MEDS: AMLODIPINE 5 MG TAB PO SCH (10:12)
[2020-06-06] MEDS: LOSARTAN POTASSIUM 50 MG TABLET PO SCH (10:12)
[2020-06-06] MEDS: carvediloL 12.5 MG TAB PO SCH ×2 (10:13→18:01)
[2020-06-06] MEDS: ENOXAPARIN 40 MG/0.4 ML SQ SCH (10:13)
[2020-06-06] MEDS: CEFTRIAXONE/SWI 1gm 1 GM/10 ML SYR IVP SCH (10:13)
[2020-06-06] MEDS: GLIMEPIRIDE 2 MG TABLET PO SCH (10:13)
[2020-06-06] MEDS: ATORVASTATIN 10 MG TAB PO SCH (10:17)
--- NOTE | 2020-06-06 11:03 | RAD REPORT ---
EXAM DESCRIPTION: CT - Abdomen Pelvis W Contrast - 06/06/2020 6:26 am CLINICAL HISTORY: Lower abdominal pain with nausea and vomiting. COMPARISON: None. TECHNIQUE: CT scan of the abdomen and pelvis was performed with IV contrast. This exam was performed according to our departmental dose-optimization program, which includes automated exposure control, adjustment of the mA and/or kV according to patient size and/or use of iterative reconstruction techn ique. FINDINGS: There are focal infiltrate changes surrounding the pancreatic head and second and third po rtion of the duodenum with surrounding peripancreatic lymph nodes. No evidence of necrosis or pseudoc yst. Mild scarring at the left lung base. No pleural or pericardial effusions are seen. There is no hiatal hernia. There has been a prior cholecystectomy. The liver, spleen, adrenal glands, and kidneys are u nremarkable. No obstructing urinary stones. Oral contrast is seen in parts of the small and large bowel. There is hyperdense material within the gastric lumen. No evidence of bowel obstruction or acute appendicitis. No free air or free fluid is s een in the peritoneal cavity. The aorta is normal caliber and contains atherosclerotic calcifications . No acute bony findings are seen. Tiny fat-containing umbilical hernia. IMPRESSION: 1. Focal inflammatory changes surrounding the pancreatic head and duodenum. This may r epresent either acute pancreatitis or duodenitis. Please correlate with lipase levels and clinical hi story. 2. Hyperdense material within the gastric lumen, nonspecific but may represent a combination of ora l contrast and possible ingested foreign body. Please correlate if there is a history of ingested mat erial. Electronically signed by: Kp Peterson MD 06/05/2020 11:07 PM CDT Due to temporary technical issues with the PACS/Fluency reporting system, reports are being signed by the in house radiologist without review as a courtesy to ensure prompt reporting. The interpreting r adiologist is fully responsible for the content of the report.
[2020-06-06] MEDS: LOPERAMIDE HCL 2 MG CAPSULE PO PRN ×2 (12:23→18:13)
[2020-06-06 13:06] LABS: Amylase 23 U/L (25-115); Lipase 73 U/L (73-393)
--- NOTE | 2020-06-06 17:03 | P.PN ---
Subjective Date of Service: 06/06/20 Chief Complaint: DIFFUSE ABDOMEN PAIN. Subjective: Improving SHE FEELS A LOT BETTER. PAIN HAS IMPROVED. Review of Systems 10-point ROS is otherwise unremarkable General: Weakness, Malaise Gastrointestinal: Abdominal Pain, No Distention Physical Examination - Vital Signs Temperature: 97 F Blood Pressure: 135/64 Pulse: 95 Respirations: 18 Pulse Ox (%): 94 - Physical Exam General: Alert, In no apparent distress HEENT: Atraumatic, PERRLA, EOMI Neck: Supple, JVD not distended Respiratory: Clear to auscultation bilaterally, Normal air movement Cardiovascular: Regular rate/rhythm, Normal S1 S2 Gastrointestinal: Normal bowel sounds, No tenderness Musculoskeletal: No tenderness Integumentary: No rashes Neurological: Normal speech, Normal tone, Normal affect Lymphatics: No axilla or inguinal lymphadenopathy - Studies Laboratory Data (last 24 hrs) 06/06/20 12:33: Amylase 23 L, Lipase 73 06/06/20 05:13: Sodium 137, Potassium 4.4, BUN 38 H, Creatinine 0.95, Glucose 143 H, Magnesium 2.2 06/06/20 05:13: WBC 10.6 D, Hgb 12.0, Hct 35.5 L D, Plt Count 270 06/05/20 18:40: Sodium 135 L, Potassium 4.7, BUN 33 H, Creatinine 1.10, Glucose 185 H, Phosphorus 3.3, Magnesium 2.3, Total Bilirubin 0.6, AST 28, ALT 40, Alkaline Phosphatase 91 06/05/20 18:40: PT 13.5 H, INR 1.15, APTT 26.0 06/05/20 18:30: WBC 13.8 H D, Hgb 14.0, Hct 42.5, Plt Count 314 D Microbiology Data (last 24 hrs): 06/05/20 19:37 Nasopharnyx Coronavirus COVID-19 PCR - Final Medications List Reviewed: Yes Assessment And Plan - Current Problems (Diagnosis) (1) Duodenitis Current Visit: Yes Status: Acute Plan: PANCARETITIS RULED OUT. CT SCAN SHOWS DUODENITIS. MAY NEED EGD ON OP BASIS. (2) Acute pyelonephritis Current Visit: No Status: Acute Plan: IV ABX. ORAL ABX FAILED CULTURE PENDING.
[2020-06-06] MEDS: METFORMIN ER 500 MG TAB PO SCH (17:30)
[2020-06-06] MEDS: FAMOTIDINE 20 MG/2 ML VIAL IV SCH (18:04)
[2020-06-06] MEDS: DOXEPIN HCL 25 MG CAP PO SCH (20:30)
[2020-06-06] MEDS: MYRBETRIQ 25 MG PO SCH (20:31)
[2020-06-07] MEDS: METRONIDAZOLE 500mg IVPB 500 MG/100 ML BAG IV SCH ×3 (01:06→18:07)
[2020-06-07] MEDS: NACHLORIDE 0.45% 1,000 ML IV SCH ×3 (04:20→12:42)
[2020-06-07 04:51] LABS: Absolute Lymphocytes (CBC) 2.7 K/uL (0.7-4.9); Basophils % 1.1 % (0-1.3); Hematocrit 26.9 % (36.0-45.0); Lymphocytes % 36.5 % (15.3-44.8); MPV 8.9 fL (7.6-11.3)
[2020-06-07] MEDS: LOPERAMIDE HCL 2 MG CAPSULE PO PRN ×4 (04:56→20:41)
[2020-06-07 05:08] LABS: Magnesium 2.2 mg/dL (1.8-2.4); Potassium 4.2 mmol/L (3.5-5.1)
--- NOTE | 2020-06-07 05:58 | EKG ---
Test Date: 2020-06-05 Test Time: 20:04:32 Glue Clamp Operator: RT MEASUREMENT RESULTS: Intervals: Rate: 96 AK: 258 QRSD: 74 QT: 358 QTc: 452 [place]: P: 53 AK: 258 QRS: -24 T: 148 INTERPRETIVE STATEMENTS: Sinus rhythm with 1st degree AV block Septal infarct, age undetermined ST & T wave abnormality, consider inferolateral ischemia Abnormal ECG Compared to ECG 10/05/2018 16:27:25 Myocardial infarct finding now present Possible ischemia now present ST (T wave) deviation still present Electronically Signed On 06-07-20 05:55:34 CDT by Juan Carlos Mckee
[2020-06-07] MEDS: INSULIN -REGULAR HUMAN 50 UNIT/0.5 ML ML SQ SCH ×4 (07:30→21:00)
[2020-06-07] MEDS: ATORVASTATIN 10 MG TAB PO SCH ×3 (09:00→20:41)
[2020-06-07] MEDS: AMLODIPINE 5 MG TAB PO SCH (09:00)
[2020-06-07] MEDS: LOSARTAN POTASSIUM 50 MG TABLET PO SCH (09:00)
[2020-06-07] MEDS: FAMOTIDINE 20 MG/2 ML VIAL IV SCH (09:07)
[2020-06-07] MEDS: CEFTRIAXONE/SWI 1gm 1 GM/10 ML SYR IVP SCH (09:07)
[2020-06-07] MEDS: GLIMEPIRIDE 2 MG TABLET PO SCH (09:08)
[2020-06-07] MEDS: ENOXAPARIN 40 MG/0.4 ML SQ SCH (09:08)
[2020-06-07] MEDS: carvediloL 12.5 MG TAB PO SCH ×2 (09:08→18:07)
[2020-06-07 12:47] LABS: C.diff Antigen/Toxin Ag neg : Tox neg (NEG : NEG)
--- NOTE | 2020-06-07 12:56 | P.PN ---
Subjective Date of Service: 06/07/20 Chief Complaint: DIFFUSE ABDOMEN PAIN. Subjective: Improving SHE FEELS A LOT BETTER. PAIN HAS IMPROVED. MS. WALLACE IS FEELING A LOT BETTER. SHE HAS NO COMPLAINTS NOW. Review of Systems 10-point ROS is otherwise unremarkable Physical Examination - Vital Signs Temperature: 97.8 F Blood Pressure: 109/52 Pulse: 77 Respirations: 18 Pulse Ox (%): 95 - Physical Exam General: Alert, In no apparent distress HEENT: Atraumatic, PERRLA, EOMI Neck: Supple, JVD not distended Respiratory: Clear to auscultation bilaterally, Normal air movement Cardiovascular: Regular rate/rhythm, Normal S1 S2 Gastrointestinal: Normal bowel sounds, No tenderness Musculoskeletal: No tenderness Integumentary: No rashes Neurological: Normal speech, Normal tone, Normal affect Lymphatics: No axilla or inguinal lymphadenopathy - Studies Laboratory Data (last 24 hrs) 06/07/20 04:30: Sodium 139, Potassium 4.2, BUN 42 H, Creatinine 1.39 H, Glucose 81, Magnesium 2.2 06/07/20 04:30: WBC 7.5 D, Hgb 9.1 L D, Hct 26.9 L D, Plt Count 250 06/06/20 12:33: Amylase 23 L, Lipase 73 Microbiology Data (last 24 hrs): 06/05/20 19:37 Nasopharnyx Coronavirus COVID-19 PCR - Final Medications List Reviewed: Yes Assessment And Plan - Current Problems (Diagnosis) (1) Duodenitis Current Visit: Yes Status: Acute Plan: PANCARETITIS RULED OUT. CT SCAN SHOWS DUODENITIS. MAY NEED EGD ON OP BASIS. (2) Acute pyelonephritis Current Visit: No Status: Acute Plan: IV ABX. ORAL ABX FAILED CULTURE PENDING. CULTURE NEGATIVE SHE HAS HAD TWO ABX ALREADY FROM URGENT CARE. I WILL CONTINUE ORAL ABX CEFTIN FOR 2 WEEKS. (3) Dehydration Current Visit: Yes Status: Acute Plan: CREAT RAISED. I V FLUIDS STARTED. REDO LAB IN AM.
[2020-06-07] MEDS: METFORMIN ER 500 MG TAB PO SCH (17:30)
[2020-06-07] MEDS: LACTOBACILLUS/ACIDOPHILUS TAB PO SCH (20:40)
[2020-06-07] MEDS: DOXEPIN HCL 25 MG CAP PO SCH (20:40)
[2020-06-07] MEDS: MYRBETRIQ 25 MG PO SCH (21:00)
[2020-06-08] MEDS: NACHLORIDE 0.45% 1,000 ML IV SCH ×3 (00:10→17:29)
[2020-06-08] MEDS: METRONIDAZOLE 500mg IVPB 500 MG/100 ML BAG IV SCH ×3 (00:10→17:26)
[2020-06-08 05:59] LABS: Basophils % 0.9 % (0-1.3); Lymphocytes % 41.8 % (15.3-44.8); MPV 8.8 fL (7.6-11.3); RBC Red Blood Cell Count 2.65 M/uL (3.86-4.86)
[2020-06-08 06:12] LABS: Potassium 4.1 mmol/L (3.5-5.1)
[2020-06-08] MEDS: INSULIN -REGULAR HUMAN 50 UNIT/0.5 ML ML SQ SCH ×4 (07:30→21:00)
[2020-06-08] MEDS: CHOLESTYRAMINE/ASP 4 GM/PKT PO SCH ×4 (08:00→17:26)
[2020-06-08] MEDS: FAMOTIDINE 20 MG/2 ML VIAL IV SCH (08:41)
[2020-06-08] MEDS: LOSARTAN POTASSIUM 50 MG TABLET PO SCH (08:42)
[2020-06-08] MEDS: LACTOBACILLUS/ACIDOPHILUS TAB PO SCH ×3 (08:42→21:33)
[2020-06-08] MEDS: GLIMEPIRIDE 2 MG TABLET PO SCH (08:42)
[2020-06-08] MEDS: carvediloL 12.5 MG TAB PO SCH ×2 (08:42→17:34)
[2020-06-08] MEDS: CEFTRIAXONE/SWI 1gm 1 GM/10 ML SYR IVP SCH (08:43)
--- NOTE | 2020-06-08 13:18 | P.PN ---
Subjective Date of Service: 06/08/20 Chief Complaint: DIFFUSE ABDOMEN PAIN. Subjective: Improving SHE FEELS A LOT BETTER. PAIN HAS IMPROVED. MS. WALLACE IS FEELING A LOT BETTER. SHE HAS NO COMPLAINTS NOW. SHE FEELS A LOT BETTER. SHE HAS DIARRHEA SINCE [address] LOMAS HAS NOT FOUND ANSWERS. I AM DOING IBD AND CELIAC STUDIES. SHE WILL GO TO IBD CLINIC IF NEED. Review of Systems 10-point ROS is otherwise unremarkable Physical Examination - Vital Signs Temperature: 98.1 F Blood Pressure: 110/54 Pulse: 81 Respirations: 15 Pulse Ox (%): 97 - Physical Exam General: Alert, In no apparent distress HEENT: Atraumatic, PERRLA, EOMI Neck: Supple, JVD not distended Respiratory: Clear to auscultation bilaterally, Normal air movement Cardiovascular: Regular rate/rhythm, Normal S1 S2 Gastrointestinal: Normal bowel sounds, No tenderness Musculoskeletal: No tenderness Integumentary: No rashes Neurological: Normal speech, Normal tone, Normal affect Lymphatics: No axilla or inguinal lymphadenopathy - Studies Laboratory Data (last 24 hrs) 06/08/20 05:24: Sodium 141, Potassium 4.1, BUN 24 H, Creatinine 0.85, Glucose 80, Magnesium 2.0 06/08/20 05:24: WBC 4.7 D, Hgb 8.0 L, Hct 23.0 L, Plt Count 206 Microbiology Data (last 24 hrs): 06/05/20 22:30 Clean Catch Urine [place] Count - Final <10,000 CFU/ML. 06/05/20 22:30 Clean Catch Urine - Final MIXED FRIDA. Medications List Reviewed: Yes Assessment And Plan - Current Problems (Diagnosis) (1) Duodenitis Current Visit: Yes Status: Acute Plan: PANCARETITIS RULED OUT. CT SCAN SHOWS DUODENITIS. MAY NEED EGD ON OP BASIS. (2) Acute pyelonephritis Current Visit: No Status: Acute Plan: IV ABX. ORAL ABX FAILED CULTURE PENDING. CULTURE NEGATIVE SHE HAS HAD TWO ABX ALREADY FROM URGENT CARE. I WILL CONTINUE ORAL ABX CEFTIN FOR 2 WEEKS. (3) Dehydration Current Visit: Yes Status: Acute Plan: CREAT RAISED. I V FLUIDS STARTED. [facility] LAB IN AM. (4) Anemia Current Visit: Yes Status: Acute Plan: STOP LOVENOX. SHOULD COME UP HIGHER HER GI DOCTOR DOES NOT COME HERE. SHE WILL GO OUTPATIENT TO HIM. (5) Chronic diarrhea Current Visit: Yes Status: Chronic Plan: SINCE 1996 FABIAN DONE, HPI.
[2020-06-08] MEDS: METFORMIN ER 500 MG TAB PO SCH (17:26)
[2020-06-08] MEDS: MYRBETRIQ 25 MG PO SCH (21:00)
[2020-06-08] MEDS: ATORVASTATIN 10 MG TAB PO SCH (21:32)
[2020-06-08] MEDS: DOXEPIN HCL 25 MG CAP PO SCH (21:32)
[2020-06-09] MEDS: METRONIDAZOLE 500mg IVPB 500 MG/100 ML BAG IV SCH ×2 (01:06→08:44)
[2020-06-09] MEDS: NACHLORIDE 0.45% 1,000 ML IV SCH (04:28)
[2020-06-09 05:29] LABS: Absolute Lymphocytes (CBC) 2.3 K/uL (0.7-4.9); Basophils % 0.9 % (0-1.3); Hematocrit 24.9 % (36.0-45.0); Lymphocytes % 34.4 % (15.3-44.8); MPV 8.6 fL (7.6-11.3); RBC Red Blood Cell Count 2.84 M/uL (3.86-4.86)
[2020-06-09 05:53] LABS: Magnesium 1.9 mg/dL (1.8-2.4); Potassium 4.3 mmol/L (3.5-5.1)
[2020-06-09] MEDS: INSULIN -REGULAR HUMAN 50 UNIT/0.5 ML ML SQ SCH (07:30)
[2020-06-09] MEDS: FAMOTIDINE 20 MG/2 ML VIAL IV SCH (08:46)
[2020-06-09] MEDS: GLIMEPIRIDE 2 MG TABLET PO SCH (08:46)
[2020-06-09] MEDS: CEFTRIAXONE/SWI 1gm 1 GM/10 ML SYR IVP SCH (08:46)
[2020-06-09] MEDS: carvediloL 12.5 MG TAB PO SCH (08:46)
[2020-06-09] MEDS: LACTOBACILLUS/ACIDOPHILUS TAB PO SCH (08:47)
[2020-06-09] MEDS: CHOLESTYRAMINE/ASP 4 GM/PKT PO SCH (08:47)
[2020-06-09] MEDS: LOSARTAN POTASSIUM 50 MG TABLET PO SCH (08:47)
[2020-06-09 08:48] VITALS: BP 147/73
[2020-06-09 09:08] VITALS: TEMP 98.9
[2020-06-09 09:29] VITALS: O2SAT 95
--- NOTE | 2020-06-09 15:00 | P.DS ---
Admission Date: 06/05/20 Discharge Date: 06/09/20 Disposition: ROUTINE DISCHARGE Discharge Condition: FAIR Reason for Admission: DIFFUSE ABDOMEN PAIN. - Problems (1) Duodenitis Status: Acute (2) Acute pyelonephritis Status: Acute (3) Dehydration Status: Acute (4) Anemia Status: Acute (5) Chronic diarrhea Status: Chronic Brief History of Present Illness: MS. WALLACE CAME AFTER GOING TO URGENT CARE TWICE FOR UTI. SHE FELT BAD AND WAS ON MACRODANTIN WHEN I SAW HER. I ADMITTED HER. CT SCAN SHOWED DUODENITIS AND POSSIBLE FB IN STOMACH. ANTIBIOTICS HELPED HER, SHE FELT GREAT IN TWO DAYS. SHE HAD ACUTE DEHYDRATION SHE ALSO HAD SEVERE DIARRHEA THAT IS GOING ON SINCE 1996. SHE HAD FULL EVAL DONE. I GAVE HER QUESTRAN LIGHT AND PROBIOTICS AND THE DIARREHA STOPPED. SHE WILL CONTINUE ANTIBIOTICS AT HOME. SHE WILL FU IN 2 WEEKS. SHE HAS ANEMIA THAT HAPPENED WITH LOVENOX SC AND IMPROVED WHEN I STOPPED IT. THIS IS WHY SHE NEEDS DR. LOMAS TO LOOK AT EGD AND COLONOSCOPY AGAIN. SHE WILL CALL HIM. I WILL FU WITH LAB ROUTINELY. Vital Signs/Physical Exam: Temp Pulse Resp BP Pulse Ox 98.9 F 90 18 147/73 H 96 06/09/20 08:00 06/09/20 08:46 06/09/20 08:00 06/09/20 08:46 06/09/20 08:00 General: Alert, In no apparent distress HEENT: Atraumatic, PERRLA, EOMI Neck: Supple, JVD not distended Respiratory: Clear to auscultation bilaterally, Normal air movement Cardiovascular: Regular rate/rhythm, Normal S1 S2 Gastrointestinal: Normal bowel sounds, No tenderness Musculoskeletal: No tenderness Integumentary: No rashes Neurological: Normal speech, Normal tone, Normal affect Lymphatics: No axilla or inguinal lymphadenopathy Laboratory Data at Discharge: WBC 6.7 K/uL (4.3-10.9) D 06/09/20 05:14 Hgb 8.3 g/dL (12.0-15.0) L 06/09/20 05:14 Hct 24.9 % (36.0-45.0) L 06/09/20 05:14 Plt Count 253 K/uL (152-406) D 06/09/20 05:14 PT 13.5 SECONDS (9.5-12.5) H 06/05/20 18:40 INR 1.15 06/05/20 18:40 APTT 26.0 SECONDS (24.3-36.9) 06/05/20 18:40 Sodium 142 mmol/L (136-145) 06/09/20 05:14 Potassium 4.3 mmol/L (3.5-5.1) 06/09/20 05:14 BUN 8 mg/dL (7-18) 06/09/20 05:14 Creatinine 0.71 mg/dL (0.55-1.3) 06/09/20 05:14 Glucose 110 mg/dL (74-106) H 06/09/20 05:14 Phosphorus 3.3 mg/dL (2.5-4.9) 06/05/20 18:40 Magnesium 1.9 mg/dL (1.8-2.4) 06/09/20 05:14 Total Bilirubin 0.6 mg/dL (0.2-1.0) 06/05/20 18:40 AST 28 U/L (15-37) 06/05/20 18:40 ALT 40 U/L (12-78) 06/05/20 18:40 Alkaline Phosphatase 91 U/L (45-117) 06/05/20 18:40 Amylase 23 U/L (25-115) L 06/06/20 12:33 Lipase 73 U/L (73-393) 06/06/20 12:33 Home Medications: Losartan Potassium [Cozaar] 100 mg PO DAILY 05/29/15 Pravastatin [Pravachol*] 20 mg PO DAILY 05/29/15 carvediloL [Coreg*] 12.5 mg PO BID 05/29/15 Metformin ER [Glucophage ER*] 500 mg PO DAILY AFTER SUPPER 10/05/18 Doxepin HCl 100 mg PO BEDTIME 06/06/20 Glimepiride 4 mg PO DAILY 06/06/20 Mirabegron [Myrbetriq] 25 mg PO DAILY 06/06/20 Cefuroxime [Ceftin] 250 mg PO BID #20 tab 06/09/20 Cholestyramine/Asp [Questran Light] 4 gm PO BID #60 packet 06/09/20 metroNIDAZOLE [Flagyl] 500 mg PO Q8H #30 tablet 06/09/20 New Medications: Cefuroxime [Ceftin] 250 mg PO BID #20 tab metroNIDAZOLE [Flagyl] 500 mg PO Q8H #30 tablet Cholestyramine/Asp [Questran Light] 4 gm PO BID #60 packet
[2020-06-13 23:00] LABS: Immunoglobulin A 150 mg/dL (70-320); Tissue Transglutaminase IgA Ab 1 U/mL (<4)
== END 2020-06-09 09:54 | disposition home or self-care (01) ==
LOC: 2ND 17:55
PROVIDERS: ADMIT Internal Medicine; ATTEND Internal Medicine
DX: K29.80 Duodenitis without bleeding (principal); N10 Acute pyelonephritis; K52.9 Noninfective gastroenteritis and colitis, unspecified; E86.0 Dehydration; D64.9 Anemia, unspecified; I10 Essential (primary) hypertension; I25.10 Atherosclerotic heart disease of native coronary artery without angina pectoris; E78.5 Hyperlipidemia, unspecified; K63.5 Polyp of colon; Z79.82 Long term (current) use of aspirin; Z20.828 Contact with and (suspected) exposure to other viral communicable diseases
CPT/HCPCS: 93005; 87088; 87045; 85025 ×5; 87086; 80048 ×5; 36415 ×4; 82150; 83735 ×5; 87177; 84100; 85610; 82947 ×14; 80076; 87046; 85730; 83516; 87209; 84443; 87324; 83036; 82607; 83690; 82306; 87449; 82784; 74177; 71046; U0002; Q2035; J1650 ×3; J0696 ×5; G0378 ×7; G0379; 81003; 81015

== ENCOUNTER 2022-12-17 11:50 | Emergency (ER) | payer OTHER ==
--- OUTSIDE RECORDS SUMMARY | 2022-12-17 11:53 | XMS REPORT | Continuity of Care Document ---
:1945 Author Organization [facility] t Address [address] [place] [address] Care Team Providers Name Role Phone Unavailable Unavailable Unavailable Payers Payer Name Policy Type Policy Number Effective Date Expiration Date S nicki COVID VACCINE [id number] 2020-11-08 00:00:00 ADMIN / TESTING Problems This patient has no known problems. Allergies, Adverse Reactions, Alerts This patient has no known allergies or adverse reactions. Social History Social Habit Start Date Stop Date Quantity Comments Source Sex Assigned At [address] [facility] Medic[facility] This patient has no known medications. Immunizations Ordered Immunization Filled Immunization Date Status Commen ts Source Name Name Covid-19 Vaccine 2020-11-[address] [facility] (PF) 12yr+ 00:00:00 Medical [facility] enter (Pfizer/BioNTech)(IM M601) Covid-19 Vaccine 2020-11-[address] [facility] M[facility] (PF) 12yr+ 00:00:00 Medical C enter (Pfizer/BioNTech)(IM M601) Covid-19 Vaccine 2020-11-[address] [facility] M[facility] (PF) 12yr+ 00:00:00 Medical C enter (Pfizer/BioNTech)(IM M601) Covid-19 Vaccine 2020-11-[address] [facility] M[facility] (PF) 12yr+ 00:00:00 Medical C enter (Pfizer/BioNTech)(IM M601) Covid-19 Vaccine 2020-11-[address] [facility] M[facility] (PF) 12yr+ 00:00:00 Medical C enter (Pfizer/BioNTech)(IM M601) Covid-19 Vaccine 2020-11-[address] [facility] M[facility] (PF) 12yr+ 00:00:00 Medical C enter (Pfizer/BioNTech)(IM M601) Covid-19 Vaccine 2020-11-[address] [facility] M[facility] (PF) 12yr+ 00:00:00 Medical C enter (Pfizer/BioNTech)(IM M601) Covid-19 Vaccine 2020-11-[address] [facility] M[facility] (PF) 12yr+ 00:00:00 Medical C enter (Pfizer/BioNTech)(IM M601) Covid-19 Vaccine 2020-11-[address] [facility] M[facility] (PF) 12yr+ 00:00:00 Medical C enter (Pfizer/BioNTech)(IM M601) Covid-19 Vaccine 2020-11-[address] [facility] M[facility] (PF) 12yr+ 00:00:00 Medical C enter (Pfizer/BioNTech)(IM M601) Covid-19 Vaccine 2020-11-[address] [facility] M[facility] (PF) 12yr+ 00:00:00 Medical C enter (Pfizer/BioNTech)(IM M601) Covid-19 Vaccine 2020-11-[address] [facility] M[facility] (PF) 12yr+ 00:00:00 Medical C enter (Pfizer/BioNTech)(IM M601) Procedures This patient has no known procedures. Plan of Care Planned Activity Planned Date Details Comments Source Future Scheduled 2022-09-[address] [facility] 00:00:00 (12+) [code = [facility] DEPRESSION SCREENING (12+)] Future Scheduled 2022-09-[address] FALLS [address]ISK SCREENING [facility] 00:00:00 [code = FALLS RISK Medical C enter SCREENING] Future Scheduled 2022-09-[address] [facility] 00:00:00 (12+) [code = Medical Center DEPRESSION SCREENING (12+)] Future Scheduled 2022-09-28 FALLS RISK SCREENING [facility] 00:00:00 [code = FALLS RISK Medical C enter SCREENING] Future Scheduled 2022-09-[address] [facility] 00:00:00 (12+) [code = Medical Center DEPRESSION SCREENING (12+)] Future Scheduled 2022-09-28 FALLS RISK SCREENING [facility] 00:00:00 [code = FALLS RISK Medical C enter SCREENING] Future Scheduled 2022-09-[address] [facility] 00:00:00 (12+) [code = Medical Center DEPRESSION SCREENING (12+)] Future Scheduled 2022-09-28 FALLS RISK SCREENING [facility] 00:00:00 [code = FALLS RISK Medical C enter SCREENING] Future Scheduled 2022-09-[address] [facility] 00:00:00 (12+) [code = Medical Center DEPRESSION SCREENING (12+)] Future Scheduled 2022-09-28 FALLS RISK SCREENING [facility] 00:00:00 [code = FALLS RISK Medical C enter SCREENING] Future Scheduled 2022-05-29 INFLUENZA VACCINE (#1) [facility] 00:[facility]:00 [code = INFLUENZA Medical Ce nter VACCINE (#1)] Future Scheduled 2022-05-29 INFLUENZA VACCINE (#1) [facility] 00:00:00 [code = INFLUENZA Medical Ce nter VACCINE (#1)] Future Scheduled 2022-05-29 INFLUENZA VACCINE (#1) [facility] 00:00:00 [code = INFLUENZA Medical Ce nter VACCINE (#1)] Future Scheduled 2022-05-29 INFLUENZA VACCINE (#1) [facility] 00:00:00 [code = INFLUENZA Medical Ce nter VACCINE (#1)] Future Scheduled 2022-05-29 INFLUENZA VACCINE (#1) [facility] 00:00:00 [code = INFLUENZA Medical Ce nter VACCINE (#1)] Future Scheduled 2022-05-29 INFLUENZA VACCINE (#1) [facility] 00:00:00 [code = INFLUENZA Medical Ce nter VACCINE (#1)] Future Scheduled 2021-09-[address] [facility] 00:00:00 (12+) [code = Medical Center DEPRESSION SCREENING (12+)] Future Scheduled 2021-09-28 FALLS RISK SCREENING [facility] 00:00:00 [code = FALLS RISK Medical C enter SCREENING] Future Scheduled 2021-05-01 COVID-19 VACCINE (3 - [facility]:00 Booster for Pfizer Medical C enter series) [code = COVID-19 VACCINE (3 - Booster for Pfizer series)] Future Scheduled 2021-05-01 COVID-19 VACCINE (3 - [facility] 00:00:00 Booster for Pfizer Medical C enter series) [code = COVID-19 VACCINE (3 - Booster for Pfizer series)] Future Scheduled 2021-05-01 COVID-19 VACCINE (3 - [facility] 00:00:00 Booster for Pfizer Medical C enter series) [code = COVID-19 VACCINE (3 - Booster for Pfizer series)] Future Scheduled 2021-05-01 COVID-19 VACCINE (3 - [facility] 00:00:00 Booster for Pfizer Medical C enter series) [code = COVID-19 VACCINE (3 - Booster for Pfizer series)] Future Scheduled 2021-05-01 COVID-19 VACCINE (3 - [facility] 00:00:00 Booster for Pfizer Medical C enter series) [code = COVID-19 VACCINE (3 - Booster for Pfizer series)] Future Scheduled 2021-01-24 COVID-19 VACCINE (3 - [facility] 00:00:00 Booster for Pfizer Medical C enter series) [code = COVID-19 VACCINE (3 - Booster for Pfizer series)] Future Scheduled 2008 PNEUMOCOCCAL 65+ [facility]RS [facility] 00:00:00 (1 - PCV) [code = Medical Ce nter PNEUMOCOCCAL 65+ YRS (1 - PCV)] Future Scheduled 2008 PNEUMOCOCCAL 65+ YRS [facility] 00:00:00 (1 - PCV) [code = Medical Ce nter PNEUMOCOCCAL 65+ YRS (1 - PCV)] Future Scheduled 2008 PNEUMOCOCCAL 65+ YRS [facility] 00:00:00 (1 - PCV) [code = Medical Ce nter PNEUMOCOCCAL 65+ YRS (1 - PCV)] Future Scheduled 2008 PNEUMOCOCCAL 65+ YRS [facility] 00:00:00 (1 - PCV) [code = Medical Ce nter PNEUMOCOCCAL 65+ YRS (1 - PCV)] Future Scheduled 2008 PNEUMOCOCCAL 65+ YRS [facility] 00:00:00 (1 - PCV) [code = Medical Ce nter PNEUMOCOCCAL 65+ YRS (1 - PCV)] Future Scheduled 2008 PNEUMOCOCCAL 65+ YRS [facility] 00:00:00 (1 - PCV) [code = Medical Ce nter PNEUMOCOCCAL 65+ YRS (1 - PCV)] Future Scheduled 1993 SHINGLES VACCINES ([address] [facility] 00:00:00 of 2) [code = SHINGLES Medic al Center VACCINES (1 of 2)] Future Scheduled 1993 SHINGLES VACCINES ([address] [facility] 00:00:00 of 2) [code = SHINGLES Medic al Center VACCINES (1 of 2)] Future Scheduled 1993 SHINGLES VACCINES ([address] [facility] 00:00:00 of 2) [code = SHINGLES Medic al Center VACCINES (1 of 2)] Future Scheduled 1993 SHINGLES VACCINES ([address] [facility] 00:00:00 of 2) [code = SHINGLES Medic al Center VACCINES (1 of 2)] Future Scheduled 1993 SHINGLES VACCINES ([address] [facility] 00:00:00 of 2) [code = SHINGLES Medic al Center VACCINES (1 of 2)] Future Scheduled 1993 SHINGLES VACCINES ([address] [facility] 00:00:00 of 2) [code = SHINGLES Medic al Center VACCINES (1 of 2)] Future Scheduled 1962 DTAP/TDAP/TD VACCINES [facility] 00:00:00 (1 - Tdap) [code = Medical C enter DTAP/TDAP/TD VACCINES (1 - Tdap)] Future Scheduled 1962 DTAP/TDAP/TD VACCINES [facility] 00:00:00 (1 - Tdap) [code = Medical C enter DTAP/TDAP/TD VACCINES (1 - Tdap)] Future Scheduled 1962 DTAP/TDAP/TD VACCINES [facility] 00:00:00 (1 - Tdap) [code = Medical C enter DTAP/TDAP/TD VACCINES (1 - Tdap)] Future Scheduled 1962 DTAP/TDAP/TD VACCINES [facility] 00:00:00 (1 - Tdap) [code = Medical C enter DTAP/TDAP/TD VACCINES (1 - Tdap)] Future Scheduled 1962 DTAP/TDAP/TD VACCINES [facility] 00:00:00 (1 - Tdap) [code = Medical C enter DTAP/TDAP/TD VACCINES (1 - Tdap)] Future Scheduled 1962 DTAP/TDAP/TD VACCINES [facility] 00:00:00 (1 - Tdap) [code = Medical C enter DTAP/TDAP/TD VACCINES (1 - Tdap)] Future Scheduled 1961 HEPATITIS C SCREENING [facility] 00:00:00 [code = HEPATITIS C Medical Center SCREENING] Future Scheduled 1961 HEPATITIS C [facility]CRE[facility]ING [facility] 00:00:00 [code = HEPATITIS C Medical Center SCREENING] Future Scheduled 1961 HEPATITIS C [facility]CRE[facility]ING [facility] 00:00:00 [code = HEPATITIS C Medical Center SCREENING] Future Scheduled 1961 HEPATITIS C [facility]ING [facility] 00:00:00 [code = HEPATITIS C Medical Center SCREENING] Future Scheduled 1961 HEPATITIS C [facility]ING [facility] 00:00:00 [code = HEPATITIS C Medical Center SCREENING] Future Scheduled 1961 HEPATITIS C [facility]CRE[facility]ING [facility] 00:00:00 [code = HEPATITIS C Medical Center SCREENING] Future Scheduled [address] [facility] 00:00:00 [facility] r Screening (12+) [code = Tobacco Cessation Counseling and Screening (12+)] Future Scheduled [address] [facility] 00:00:00 [facility] Cent[facility] r Screening (12+) [code = Tobacco Cessation Counseling and Screening (12+)] Future Scheduled [address] [facility] 00:00:00 [facility] Cent[facility] r Screening (12+) [code = Tobacco Cessation Counseling and Screening (12+)] Future Scheduled [address] [facility] 00:00:00 [facility] Cent[facility] r Screening (12+) [code = Tobacco Cessation Counseling and Screening (12+)] Future Scheduled [address] [facility] 00:00:00 [facility]ing [facility] Cent[facility] r Screening (12+) [code = Tobacco Cessation Counseling and Screening (12+)] Future Scheduled [address] [facility] 00:00:00 [facility] Cent[facility] r Screening (12+) [code = Tobacco Cessation Counseling and Screening (12+)] Future Scheduled 1943 DXA SCAN [code = DXA [facility] 00:00:00 SCAN] [facility] Future Scheduled 1943 DXA SCAN [code = DXA [facility] 00:00:00 SCAN] [facility] Future Scheduled 1943 DXA SCAN [code = DXA [facility] 00:00:00 SCAN] [facility] Future Scheduled 1943 DXA SCAN [code = DXA [facility] 00:00:00 SCAN] [facility] Future Scheduled 1943 DXA SCAN [code = DXA [facility] 00:00:00 SCAN] [facility] Future Scheduled 1943 DXA SCAN [code = DXA [facility] 00:00:00 SCAN] [facility] Encounters Start End Encounter Admission Attending Care Care Encounter Source Date/Time Date/Time Type Type Clinicians Facility Department ID 2020-11-29 2020-11-29 Outpatient [facility] [id number] [facility] 00:00:00 00:00:00 2020-11-28 2020-11-28 Outpatient [facility] [id number] [facility] 00:00:00 00:00:00 2020-11-08 2020-11-08 Outpatient [facility] [id number] [facility] 00:00:00 00:00:00 Results This patient has no known results.
[2022-12-17 13:48] LABS: SARS-COV-2 RT PCR POSITIVE (NEGATIVE)
--- NOTE | 2022-12-17 13:52 | RAD REPORT ---
EXAM DESCRIPTION: [facility] Pa And Lat (2 Views)12/17/2022 1:09 pm CLINICAL HISTORY: COUGH COMPARISON: Chest Pa And Lat (2 Views) dated 06/05/2020; Chest Single View dated 10/05/2018; Chest Pa An d Lat (2 Views) dated 01/02/2017; CHEST PA AND LAT 2 VIEW dated 10/20/2013 TECHNIQUE: PA and lateral views of the chest. FINDINGS: The lungs are clear. No pneumothorax or effusion. The cardiomediastinal contours are unrem arkable. IMPRESSION: No acute cardiopulmonary process.
--- NOTE | 2022-12-17 14:03 | EDPHYS ---
Physician Documentation [facility] Name: Khloe Diaz Age: 77 yrs Sex: Female : 1945 Arrival Date: 12/17/2022 Time: 11:56 Bed IW1 Private MD: ED Physician Shaquille Lubin HPI: 12/17 13:29 This 77 yrs old Female presents to ER via Ambulatory with complaints of Cough, Chest snw Congestion. 13:29 The patient or guardian reports cough, described as moderate, flu symptoms, myalgias, snw no appetite. Onset: The symptoms/episode began/occurred 1 week(s) ago, and became persistent. Severity of symptoms: At their worst the symptoms were moderate. Associated signs and symptoms: Pertinent positives: sore throat, mild shortness of breath. The patient has not experienced similar symptoms in the past, but family has similar symptoms, Grandson with similar s/s. The patient has not recently seen a physician. Historical: - Allergies: 12:24 Levaquin; hb 12:24 metformin; hb - PMHx: 12:24 Diabetes - NIDDM; Hypertension; Hypothyroidism; hb - Immunization history:: Client reports receiving the 2nd dose of the Covid vaccine. - Social history:: Smoking status: unknown. ROS: 13:28 Eyes: Negative for injury, pain, redness, and discharge. snw 13:28 Eyes: Negative for injury, pain, redness, but bilateral discharge, Neck: Negative for injury, pain, and swelling, Cardiovascular: Negative for chest pain, palpitations, and edema. 13:28 Abdomen/GI: Negative for abdominal pain, nausea, vomiting, diarrhea, and constipation, Back: Negative for injury and pain, : Negative for injury, bleeding, discharge, and swelling, MS/Extremity: Negative for injury and deformity, Skin: Negative for injury, rash, and discoloration, Neuro: Negative for headache, weakness, numbness, tingling, and seizure, Psych: Negative for depression, anxiety, suicide ideation, homicidal ideation, and hallucinations. 13:28 Constitutional: Positive for body aches, malaise, poor PO intake. 13:28 ENT: Positive for nasal discharge, sore throat. 13:28 Respiratory: Positive for cough, with rust-colored sputum, shortness of breath, on exertion. mild. Exam: 13:28 Constitutional: This is a well developed, well nourished patient who is awake, alert, snw and in no acute distress. Head/Face: Normocephalic, atraumatic. Eyes: Pupils equal round and reactive to light, extra-ocular motions intact. Lids and lashes normal. Conjunctiva and sclera are non-icteric and not injected. Cornea within normal limits. Periorbital areas with no swelling, redness, or edema. ENT: Nares patent. No nasal discharge, no septal abnormalities noted. Tympanic membranes are normal and external auditory canals are clear. Oropharynx with no redness, swelling, or masses, exudates, or evidence of obstruction, uvula midline. Mucous membranes moist. Neck: Trachea midline, no thyromegaly or masses palpated, and no cervical lymphadenopathy. Supple, full range of motion without nuchal rigidity, or vertebral point tenderness. No Meningismus. Chest/axilla: Normal chest wall appearance and motion. Nontender with no deformity. No lesions are appreciated. Cardiovascular: Regular rate and rhythm with a normal S1 and S2. No gallops, murmurs, or rubs. Normal PMI, no JVD. No pulse deficits. Respiratory: Lungs have equal breath sounds bilaterally, clear to auscultation and percussion. No rales, rhonchi or wheezes noted. No increased work of breathing, no retractions or nasal flaring. Abdomen/GI: Soft, non-tender, with normal bowel sounds. No distension or tympany. No guarding or rebound. No evidence of tenderness throughout. Back: No spinal tenderness. No costovertebral tenderness. Full range of motion. Skin: Warm, dry with normal turgor. Normal color with no rashes, no lesions, and no evidence of cellulitis. MS/ Extremity: Pulses equal, no cyanosis. Neurovascular intact. Full, normal range of motion. Neuro: Awake and alert, GCS 15, oriented to person, place, time, and situation. Cranial nerves II-XII grossly intact. Motor strength 5/5 in all extremities. Sensory grossly intact. Cerebellar exam normal. Normal gait. Psych: Awake, alert, with orientation to person, place and time. Behavior, mood, and affect are within normal limits. Vital Signs: 12:20 BP 142 / 54; Pulse 64; Resp 16; Temp 98.6(TE); Pulse Ox 100% ; Weight 74.84 kg; Height hb 4 ft. 11 in. ; Pain 0/10; 12:20 Body Mass Index 33.33 (74.84 kg, 149.86 cm) hb 12:20 Pain Scale: Adult hb MDM: 12:29 Patient medically screened. snw 14:11 Differential Diagnosis: Bronchitis Influenza Pharyngitis Otitis Media Viral Syndrome. snw Data reviewed: vital signs, nurses notes, lab test result(s). Care significantly affected by the following chronic conditions: Diabetes, Hypertension. Counseling: I had a detailed discussion with the patient and/or guardian regarding: the historical points, exam findings, and any diagnostic results supporting the discharge/admit diagnosis, the presence of at least one elevated blood pressure reading (>120/80) during this emergency department visit, lab results, the need for outpatient follow up, for definitive care, to return to the emergency department if symptoms worsen or persist or if there are any questions or concerns that arise at home. Response to treatment: There is no appreciated change of the patient's symptoms at this time. Awaiting: labs results. 12/17 12:25 Order name: COVID-19/FLU A+B; Complete Time: 13:55 hb 12/17 12:25 Order name: Strep; Complete Time: 13:06 hb 12/17 12:51 Order name: Throat Culture EDMS 12/17 12:32 Order name: Chest Pa And Lat (2 Views) XRAY; Complete Time: 13:55 snw Administered Medications: No medications were administered Disposition: 17:20 Co-signature as Attending Physician, Shaquille Lubin MD I reviewed the patient's care rt provided by the Advanced Practice Provider and agree with the diagnosis and treatment plan. Disposition Summary: 12/17/22 14:02 Discharge Ordered Location: Home snw Condition: Stable snw Diagnosis - SARS-associated coronavirus as the cause of diseases classified elsewhere snw Followup: snw - With: Emergency Department - When: As needed - Reason: Worsening of condition Followup: snw - With: Private Physician - When: 2 - 3 days - Reason: Recheck today's complaints, Continuance of care, Re-evaluation by your physician Discharge Instructions: - Discharge Summary Sheet snw - COVID-19 snw - 10 Things You Can Do to Manage Your COVID-19 Symptoms at Home - [facility] (04/12/2021) snw - COVID-19: Quarantine and Isolation - [facility] (12/25/2021) snw - COVID-19: What to Do If You Are Sick - [facility] (12/17/2021) snw Forms: - Medication Reconciliation Form snw - Thank You Letter snw - Antibiotic Education snw - Prescription Opioid Use snw Prescriptions: - albuterol sulfate 90 mcg/actuation Inhalation HFA Aerosol Inhaler - inhale 2 puff by INHALATION route every 8 hours; 1 unit; Refills: 0, Product snw Selection Permitted - Zyrtec 10 mg Oral Tablet - take 1 tablet by ORAL route once daily As needed; 20 tablet; Refills: 0, snw Product Selection Permitted - Pepcid 20 mg Oral Tablet - take 1 tablet by ORAL route once daily; 20 tablet; Refills: 0, Product snw Selection Permitted Signatures: Dispatcher [employer] EDSabina Garcia FNP-C COMPOUNDING ASSISTANT-Csnw Elly Montez RN RN hb Prokisch, Amanda, RN RN ap3 Shaquille Lubin MD MD rt
--- NOTE | 2022-12-17 14:03 | ER ---
Nurse's Notes [facility] Name: Khloe Diaz Age: 77 yrs Sex: Female : 1945 Arrival Date: 12/17/2022 Time: 11:56 Bed IW1 Private MD: Diagnosis: SARS-associated coronavirus as the cause of diseases classified elsewhere Presentation: 12/17 12:20 Chief complaint: Productive cough, mild SOB, and sore throat x week. Coronavirus hb screen: Client presents with at least one sign or symptom that may indicate coronavirus-19. Standard/surgical mask placed on the client. Provider contacted for isolation considerations. Ebola Screen: No symptoms or risks identified at this time. Initial Sepsis Screen: Does the patient meet any 2 criteria? No. Patient's initial sepsis screen is negative. Does the patient have a suspected source of infection? No. Patient's initial sepsis screen is negative. Risk Assessment: Do you want to hurt yourself or someone else? Patient reports no desire to harm self or others. Onset of symptoms was December 10, 2022. 12:20 Method Of Arrival: Ambulatory hb 12:20 Acuity: CATARINO 4 hb Triage Assessment: 12:31 EENT: Reports drainage in TANVI eyes with matting. . ap3 14:42 General: Appears in no apparent distress. Behavior is calm, cooperative. Pain: Denies ap3 pain. Neuro: Level of Consciousness is awake, alert, obeys commands, Oriented to person, place, time. Cardiovascular: Patient's skin is warm and dry. Respiratory: Airway is patent. Historical: - Allergies: 12:24 Levaquin; hb 12:24 metformin; hb - PMHx: 12:24 Diabetes - NIDDM; Hypertension; Hypothyroidism; hb - Immunization history:: Client reports receiving the 2nd dose of the Covid vaccine. - Social history:: Smoking status: unknown. Screenin:42 [facility] ED Fall Risk Assessment (Adult) History of falling in the last 3 months, ap3 including since admission No falls in past 3 months (0 pts). Abuse screen: Denies threats or abuse. Nutritional screening: No deficits noted. Tuberculosis screening: No symptoms or risk factors identified. Vital Signs: 12:20 BP 142 / 54; Pulse 64; Resp 16; Temp 98.6(TE); Pulse Ox 100% ; Weight 74.84 kg; Height hb 4 ft. 11 in. ; Pain 0/10; 12:20 Body Mass Index 33.33 (74.84 kg, 149.86 cm) hb 12:20 Pain Scale: Adult hb ED Course: 11:56 Patient arrived in ED. am2 12:09 Sabina Vincent FNP-C [facility] snw 12:09 Shaquille Lubin MD is Attending Physician. snw 12:24 Triage completed. hb 12:25 Arm band placed on left wrist. hb 12:30 Strep Sent. hb 12:30 COVID-19/FLU A+B Sent. hb 13:12 Chest Pa And Lat (2 Views) XRAY In Process Unspecified. EDMS 14:42 No provider procedures requiring assistance completed. Patient did not have IV access ap3 during this emergency room visit. 14:43 Patient has correct armband on for positive identification. ap3 Administered Medications: No medications were administered Medication: 14:42 VIS not applicable for this client. ap3 Outcome: 14:02 Discharge ordered by . snw 14:43 Discharged to home ambulatory. ap3 14:43 Condition: good 14:43 Discharge instructions given to patient, Instructed on discharge instructions, follow up and referral plans. Demonstrated understanding of instructions, follow-up care, medications, Prescriptions given X 3. 14:43 Patient left the ED. ap3 Signatures: Dispatcher [employer] EDVA Sabina Vincent FNP-C SUPERVISOR LIME-Csnw Elly Montez RN CAT Carito Farfan am2 Carito Summers RN RN ap3
[2022-12-17 14:51] VITALS: BP 142/54; TEMP 98.6; O2SAT 100
== END 2022-12-17 14:43 | disposition home or self-care (01) ==
LOC: ER 11:50
DX: U07.1 COVID-19 (principal); Z88.1 Allergy status to other antibiotic agents; Z88.8 Allergy status to other drugs, medicaments and biological substances
CPT/HCPCS: 87070; 87081; 0240U; 71046; 99283